=== PATIENT | male | born 1950 | race Caucasian/White ===

== ENCOUNTER → 2016-07-22 | Outpatient (CLI) | payer OTHER ==
[~2016-07-22] MED LIST: ALBUAER2 INH; AMLO-110 PO; ASPEC81 PO; CLX20 PO; CLX40 PO; HYDR25TA4 PO; LISI-725 PO; LSN40 PO; NRV/10 PO; PLMIN200 INH; PLMIN90; SIMV10TA2 PO; SNG10 PO; VNTHFA/IN INH
[2016-07-22 17:39] LABS: BASO % 0.3 %; BASO ABS # 0.03 K/uL (0-0.2); COMPLETE YES; EOS % 3.1 %; HEMATOCRIT 42.2 % (42-52); IG% 0.1 %; LYMPH % 41.3 %; LYMPH ABS # 3.76 K/uL (1.2-3.4); MEAN CELL VOLUME 91.9 fL (80-100); MEAN CORPUSCULAR HEMOGLOBIN 30.9 pg (25-34); MEAN CORPUSCULAR HGB CONC 33.6 g/dl (32-36); MEAN PLATELET VOLUME 9.9 fL (7.4-10.4); NEUT % 47.2 %; PLATELET COUNT 313 K/uL (130-400); RED BLOOD COUNT 4.59 M/uL (4.7-6.1); WHITE BLOOD COUNT 9.11 K/uL (4.8-10.8)
[2016-07-22 17:49] LABS: ALT/SGPT 35 U/L (12-78); BLOOD UREA NITROGEN 23 mg/dl (7-18); BUN/CREATININE RATIO 23.2 (10-20); CALCIUM 9.1 mg/dl (8.5-10.1); CARBON DIOXIDE 27 mmol/L (21-32); CHLORIDE 103 mmol/L (98-107); CHOLESTEROL 176 mg/dl (0-200); GLUCOSE 83 mg/dl (70-99); SODIUM 139 mmol/L (136-145); TRIGLYCERIDES 99 mg/dl (0-150); VERY LOW DENSITY LIPOPROT CALC 20 mg/dl
[2016-07-22 17:52] LABS: ALB/GLOB RATIO 1.1 (0.9-2); ALKALINE PHOSPHATASE 42 U/L (45-117); AST/SGOT 26 U/L (15-37); CHOLESTEROL/HDL RATIO 2.5; HDL CHOLESTEROL 70 mg/dl; LDL CHOLESTEROL CALCULATED 86 mg/dl
== END | disposition home or self-care (01) ==
LOC: C.LABBFT 12:23
PROVIDERS: ATTEND Internal Medicine
DX: I10 Essential (primary) hypertension (principal); E78.00 Pure hypercholesterolemia, unspecified

== ENCOUNTER 2017-01-31 11:14 | Emergency (ER) | payer OTHER ==
[~2017-01-31] VITALS: Ht 177.8 cm; Wt 79.3 kg
[~2017-01-31 11:14] MED LIST changes: -CLX40 PO; -HYDR25TA4 PO; -LSN40 PO; -NRV/10 PO; -PLMIN90; -VNTHFA/IN INH
[2017-01-31 11:19] VITALS: Ht 177.8 cm; Wt 79.3 kg
[2017-01-31 11:45] VITALS: O2SAT 98
[2017-01-31 12:11] LABS: MEAN CELL VOLUME 91.9 fL (80-100); MEAN CORPUSCULAR HEMOGLOBIN 31.8 pg (25-34); MEAN CORPUSCULAR HGB CONC 34.6 g/dl (32-36); MEAN PLATELET VOLUME 9.3 fL (7.4-10.4); PLATELET COUNT 328 K/uL (130-400); RED BLOOD COUNT 4.46 M/uL (4.7-6.1); WHITE BLOOD COUNT 7.88 K/uL (4.8-10.8)
--- NOTE | 2017-01-31 12:22 | DIAGNOSTIC IMAGING REPORT ---
SINGLE VIEW CHEST CLINICAL HISTORY: Hypertension. Palpitations. FINDINGS: An AP, portable, upright chest radiograph is compared to study dated 02/10/2016 and correlated with chest CT dated 06/23/2015. The examination is degraded by portable technique and patient rotation. The cardiomediastinal silhouette is unremarkable. Emphysema and chronic interstitial thickening is similar to previous. Foci of scarring are seen at both lung bases. There is a small left pleural effusion with left basilar opacities. No pneumothorax is seen. The skeletal structures are osteopenic. The bony thorax is grossly intact. IMPRESSION: 1. Emphysema and chronic parenchymal changes as above. 2. There is a small left pleural effusion with left basilar airspace opacities. This likely represents atelectasis. Correlate clinically for evidence of a superimposed infectious/inflammatory pneumonitis. Electronically signed by: Huang Montoya M.D. 01/31/2017 12:21 PM Dictated Date/Time: 01/31/2017 12:19 PM
[2017-01-31] MEDS ORDERED: NRV/10 PO (12:23)
[2017-01-31] MEDS ORDERED: PLMIN90 (12:23)
[2017-01-31] MEDS ORDERED: CLX40 PO (12:23)
[2017-01-31] MEDS ORDERED: LSN40 PO (12:23)
[2017-01-31] MEDS ORDERED: HYDR25TA4 PO (12:23)
[2017-01-31] MEDS ORDERED: SNG10 PO (12:23)
[2017-01-31] MEDS ORDERED: VNTHFA/IN INH (12:23)
[2017-01-31 12:26] LABS: PARTIAL THROMBOPLASTIN RATIO 1.1; PROTHROMBIN TIME (PATIENT) 10.2 SECONDS (9.0-12.0)
[2017-01-31 12:29] LABS: BUN/CREATININE RATIO 22.5 (10-20); CALCIUM 9.2 mg/dl (8.5-10.1); CREATININE 1.1 mg/dl (0.60-1.40); POTASSIUM 4.2 mmol/L (3.5-5.1)
[2017-01-31 12:33] LABS: CKMB/CK RATIO 1.4 (0-3.0)
[2017-01-31] MEDS ORDERED: SODIUM CHLORIDE 0.9% 1000ML 1,000 ML IV STA (13:32)
--- NOTE | 2017-01-31 13:40 | EMERGENCY ROOM VISIT NOTE ---
History Report prepared by Kvng: Benjy Summers Under the Supervision of: Dr. Manolo Jurado M.D. First contact with patient: 13:10 Chief Complaint: HYPERTENSION Stated Complaint: HIGH BLOOD PRESSURE;HEART PALP History of Present Illness The patient is a 66 year old male who presents to the Emergency Room with complaints of intermittent heart palpitations that started three days ago. The patient states that he noticed the irregular heartbeat three days ago, but noticed it became more constant today. He also reports that he has also been experiencing hypertension today with a read of 180/92, which prompted him to visit the ED. He admits that he took his blood pressure medication today for his symptoms. The patient admits to a history of PVCs, but he admits that he only experiences this intermittently. He reports that when he does have an episode, it usually goes away shortly after starting. The patient states that he believes his heartbeat is due to his increased anxiety from planning a trip to [place] next week. The patient is accompanied by his who states that he has been working outside in the sun for long hours. The patient states that he has been working on his new property and has been picking up rocks. He admits that he had pneumonia as a baby, which damaged his lower lung love. 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 He reports that he has a history of COPD, which he uses and inhaler for. The patient states that he typically experiences a cough due to his COPD, but denies any change in cough. He reports that he has been eating and drinking normally. He admits that he has a history of a stroke that occurred last year. The patient states that he was experiencing symptoms such as dysphasia and inability to write. He states that his stroke lasted for 4 hours. The patient admits that he is currently taking Aspirin daily. He denies fevers, chills, congestion, shortness of breath, nausea, vomiting, chest tightness, and a history of smoking. Source of History: patient Onset: three days ago Position: other (global) Quality: other (palpitations) Timing: intermittent Associated Symptoms: No fevers, No chills, No chest pain, No SOB, No nausea , No vomiting Review of Systems See HPI for pertinent positives and negatives. A total of ten systems were reviewed and were otherwise negative. Past Medical & Surgical Medical Problems: (1) Bronchiectasis (2) Hypertension (3) TIA (transient ischemic attack) Family History Patient reports no known family medical history. Social History Smoking Status: Never Smoker Drug Use: none Marital Status: Housing Status: lives with significant other Occupation Status: retired Current/Historical Medications Scheduled Amlodipine Besylate (Amlodipine Besylate), 10 MG PO DAILY Aspirin (Aspirin EC Low Dose), 81 MG PO DAILY Citalopram (Citalopram Hydrobromide), 40 MG PO DAILY Hydrochlorothiazide (Hctz), 12.5 MG PO DAILY Lisinopril (Lisinopril), 40 MG PO DAILY Montelukast Sod (Montelukast Sodium), 10 MG PO DAILY Simvastatin (Zocor), 10 MG PO QPM Scheduled PRN Albuterol Hfa (Ventolin Hfa), 2-4 PUFFS INH Q6H PRN for Shortness of Breath Miscellaneous Medications Budesonide (Pulmicort Flexhaler) Allergies Coded Allergies: Tomato (Unverified Allergy, Unknown, hives, 01/31/17) Levofloxacin (Unverified Adverse Reaction, Intermediate, "HIGH ANXIETY, CAN'T SLEEP" -PT, 01/31/17) Physical Exam Vital Signs Date Time Temp Pulse Resp B/P (MAP) Pulse Ox O2 Delivery O2 Flow Rate FiO2 01/31/17 16:44 37.1 71 14 161/75 97 01/31/17 16:39 71 14 161/75 97 Room Air 01/31/17 16:05 73 01/31/17 16:01 173/68 01/31/17 15:40 77 14 01/31/17 15:35 72 9 97 01/31/17 15:30 160/69 01/31/17 15:05 75 10 01/31/17 15:00 158/68 01/31/17 14:35 74 15 98 01/31/17 14:05 78 16 01/31/17 13:35 74 15 01/31/17 13:31 154/90 01/31/17 13:05 72 13 01/31/17 13:00 74 11 165/78 01/31/17 12:32 166/76 01/31/17 12:30 72 15 01/31/17 12:08 70 18 153/75 98 Room Air 01/31/17 11:48 70 01/31/17 11:45 71 15 147/86 95 Room Air 01/31/17 11:45 98 Room Air 01/31/17 11:19 37.1 83 16 162/85 98 Room Air Physical Exam GENERAL: Awake, alert, well-appearing, in no distress HENT: Normocephalic, atraumatic. Dry mucous membranes. Oropharynx otherwise unremarkable. EYES: Normal conjunctiva. Sclera non-icteric. NECK: Supple. No nuchal rigidity. FROM. No JVD. RESPIRATORY: Clear to auscultation. CARDIAC: Regular rate, normal rhythm. Extremities warm and well perfused. Pulses equal. ABDOMEN: Soft, non-distended. No tenderness to palpation. No rebound or guarding. No masses. RECTAL: Deferred. MUSCULOSKELETAL: Chest examination reveals no tenderness. The back is symmetrical on inspection without obvious abnormality. There is no CVA tenderness to palpation. No joint edema. LOWER EXTREMITIES: Calves are equal size bilaterally and non-tender. No edema. No discoloration. NEURO: Normal sensorium. No sensory or motor deficits noted. SKIN: No rash or jaundice noted. Medical Decision & Procedures ER Provider Diagnostic Interpretation: X-ray: Per my interpretation, radiologist review. SINGLE VIEW CHEST CLINICAL HISTORY: Hypertension. Palpitations. FINDINGS: An AP, portable, upright chest radiograph is compared to study dated 02/10/2016 and correlated with chest CT dated 06/23/2015. The examination is degraded by portable technique and patient rotation. The cardiomediastinal silhouette is unremarkable. Emphysema and chronic interstitial thickening is similar to previous. Foci of scarring are seen at both lung bases. There is a small left pleural effusion with left basilar opacities. No pneumothorax is seen. The skeletal structures are osteopenic. The bony thorax is grossly intact. IMPRESSION: 1. Emphysema and chronic parenchymal changes as above. 2. There is a small left pleural effusion with left basilar airspace opacities. This likely represents atelectasis. Correlate clinically for evidence of a superimposed infectious/inflammatory pneumonitis. Electronically signed by: Huang Montoya M.D. 01/31/2017 12:21 PM Dictated Date/Time: 01/31/2017 12:19 PM Laboratory Results 01/31/17 11:49 01/31/17 11:49 Test 01/31/17 11:49 01/31/17 11:54 Red Blood Count 4.46 M/uL (4.7-6.1) Mean Corpuscular Volume 91.9 fL (80-100) Mean Corpuscular Hemoglobin 31.8 pg (25-34) Mean Corpuscular Hemoglobin Concent 34.6 g/dl (32-36) RDW Standard Deviation 47.3 fL (36.4-46.3) RDW Coefficient of Variation 13.9 % (11.5-14.5) Mean Platelet Volume 9.3 fL (7.4-10.4) Prothrombin Time 10.2 SECONDS (9.0-12.0) Prothromb Time International Ratio 1.0 (0.9-1.1) Activated Partial Thromboplast Time 28.2 SECONDS (21.0-31.0) Partial Thromboplastin Ratio 1.1 Anion Gap 6.0 mmol/L (3-11) Est Creatinine Clear Calc Drug Dose 66.4 ml/min Estimated GFR () 79.5 Estimated GFR (Non- 68.6 BUN/Creatinine Ratio 22.5 (10-20) Calcium Level 9.2 mg/dl (8.5-10.1) Magnesium Level 2.2 mg/dl (1.8-2.4) Total Bilirubin 0.5 mg/dl (0.2-1) Aspartate Amino Transf (AST/SGOT) 33 U/L (15-37) Alanine Aminotransferase (ALT/SGPT) 41 U/L (12-78) Alkaline Phosphatase 43 U/L (45-117) Total Creatine Kinase 319 U/L (39-308) Creatine Kinase MB 4.6 ng/ml (0.5-3.6) Creatine Kinase MB Ratio 1.4 (0-3.0) Total Protein 7.9 gm/dl (6.4-8.2) Albumin 4.0 gm/dl (3.4-5.0) Globulin 3.9 gm/dl (2.5-4.0) Albumin/Globulin Ratio 1.0 (0.9-2) Thyroid Stimulating Hormone (TSH) 1.340 uIu/ml (0.300-4.500) Bedside Troponin I < 0.030 ng/ml (0-0.045) Laboratory results reviewed by me Medications Administered Medications (Trade) Dose Ordered Sig/Shu Route Start Time Stop Time Status Last Admin Dose Admin Sodium Chloride 1,000 ml @ 999 mls/hr Q1H1M STAT IV 01/31/17 13:32 01/31/17 14:32 DC 01/31/17 13:45 999 MLS/HR ECG Indication: other (palpitations) Rate (beats per minute): 72 Rhythm: sinus with SA Findings: no acute ischemic change, no ectopy, other (Normal interval) Comparison ECG Date: 02/10/16 Change: no significant change ED Course 1323: The patient was evaluated in room B04. A complete history and physical exam was performed. 1332: Sodium Chloride 1000 ml @ 999 mls/hr IV. 1611: I reevaluated the patient and he feels better. I discussed the patient's results and treatment plan. I told him to follow up with his doctor. He understands and agrees to the plan. The patient is ready for discharge. Medical Decision I reviewed the patient's past medical history, medications, and the nursing notes as described above. Triage Nursing notes reviewed. The patient's presentation and history were concerning for arrhythmia, ACS, pneumonia, bronchitis, dehydration, and electrolyte abnormalities. The patient is a 66-year-old gentleman who presents to department complaining of intermittent palpitations as well as elevated blood pressure per history of present illness. On arrival patient appears mildly anxious but otherwise well- appearing and in no acute distress. Patient is afebrile with heart rate NSR with occasional PVCs on the monitor and otherwise blood pressure systolic in the 170s. On exam the patient appears clinically dry with dry mucous membranes and otherwise exam is unremarkable. EKG unchanged. Troponin negative and the setting of several days of symptoms. Chest x-ray also unremarkable in the setting of the patient's known remote lobectomies. Labs also unremarkable with electrolytes. Patient feeling improved after IV fluids. 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 Patient agreeable and d/c'd per discharge instructions. Medication Reconcilliation Current Medication List: was personally reviewed by me Blood Pressure Screening Patient's blood pressure: Elevated blood pressure Blood pressure disposition: Referred to PCP Impression Primary Impression: Heart palpitations Scribe Attestation The scribe's documentation has been prepared under my direction and personally reviewed by me in its entirety. I confirm that the note above accurately reflects all work, treatment, procedures, and medical decision making performed by me. Departure Information Dispostion Home / Self-Care Referrals Harjinder Jackson M.D. (PCP) Ralph Rodriguez M.D. Forms HOME CARE DOCUMENTATION FORM, IMPORTANT VISIT INFORMATION, WORK / SCHOOL INSTRUCTIONS Patient Instructions ED Palpitations, My [facility], Premature Ventricular Contract About Additional Instructions Please follow up with your primary care physician and cardiology in the next 1- 3 days for re-evaluation and possible medication adjustment and holter monitor. Your exam, ekg, chest xray, and lab results did not show signs of an emergent condition. Return to the emergency department for worsening symptoms as described in the accompanying instructions.
[2017-01-31 15:16] LABS: MAGNESIUM 2.2 mg/dl (1.8-2.4); THYROID STIMULATING HORMONE 1.34 uIu/ml (0.300-4.500)
[2017-01-31 16:44] VITALS: BP 161/75; PULSE 71; TEMP 37.1; O2SAT 97
== END 2017-01-31 16:45 | disposition home or self-care (01) ==
LOC: C.EDB 11:16
DX: R00.2 Palpitations (principal); I10 Essential (primary) hypertension; Z86.73 Personal history of transient ischemic attack (TIA), and cerebral infarction without residual deficits; Z87.01 Personal history of pneumonia (recurrent); J44.9 Chronic obstructive pulmonary disease, unspecified; Z79.82 Long term (current) use of aspirin

== ENCOUNTER → 2017-03-10 | Outpatient (CLI) | payer OTHER ==
[~2017-03-10] MED LIST changes: -ALBUAER2 INH; -AMLO-110 PO; -CLX20 PO; +CLX40 PO; +HYDR25TA4 PO; -LISI-725 PO; +LSN40 PO; +NRV/10 PO; -PLMIN200 INH; +PLMIN90; +VNTHFA/IN INH
[2017-03-10 13:04] LABS: CHOLESTEROL/HDL RATIO 2.8
== END | disposition home or self-care (01) ==
LOC: C.LABBFT 10:09
PROVIDERS: ATTEND Internal Medicine
DX: E78.00 Pure hypercholesterolemia, unspecified (principal)

== ENCOUNTER → 2017-08-11 | Outpatient (CLI) | payer OTHER ==
[2017-08-11 12:19] LABS: BASO % 0.5 %; BASO ABS # 0.04 K/uL (0-0.2); EOS % 4.7 %; EOS ABS # 0.38 K/uL (0-0.5); HEMATOCRIT 41.7 % (42-52); HEMOGLOBIN 13.8 g/dL (14.0-18.0); IG# 0.02 K/uL (0.00-0.02); LYMPH % 41.5 %; LYMPH ABS # 3.37 K/uL (1.2-3.4); MEAN CELL VOLUME 93.1 fL (80-100); MEAN CORPUSCULAR HEMOGLOBIN 30.8 pg (25-34); MEAN CORPUSCULAR HGB CONC 33.1 g/dl (32-36); MEAN PLATELET VOLUME 9.4 fL (7.4-10.4); MONO % 12.4 %; MONO ABS # 1.01 K/uL (0.11-0.59); NEUT % 40.7 %; NEUT ABS # 3.31 K/uL (1.4-6.5); PLATELET COUNT 320 K/uL (130-400); RED CELL DISTRIBUTION WIDTH CV 15.2 % (11.5-14.5); WHITE BLOOD COUNT 8.13 K/uL (4.8-10.8)
[2017-08-11 12:48] LABS: ALT/SGPT 56 U/L (12-78); BLOOD UREA NITROGEN 24 mg/dl (7-18); CALCIUM 8.7 mg/dl (8.5-10.1); CARBON DIOXIDE 30 mmol/L (21-32); CHOLESTEROL 155 mg/dl (0-200); CREATININE 1.03 mg/dl (0.60-1.40); GLUCOSE 83 mg/dl (70-99); POTASSIUM 4.1 mmol/L (3.5-5.1); SODIUM 135 mmol/L (136-145)
[2017-08-11 12:53] LABS: ALKALINE PHOSPHATASE 47 U/L (45-117); AST/SGOT 33 U/L (15-37); LDL CHOLESTEROL CALCULATED 72 mg/dl; TOTAL PROTEIN 6.9 gm/dl (6.4-8.2)
== END | disposition home or self-care (01) ==
LOC: C.LABBFT 08:29
PROVIDERS: ATTEND Internal Medicine
DX: J44.9 Chronic obstructive pulmonary disease, unspecified (principal); E78.00 Pure hypercholesterolemia, unspecified; Z12.5 Encounter for screening for malignant neoplasm of prostate; T14.8XXA Other injury of unspecified body region, initial encounter; W57.XXXA Bitten or stung by nonvenomous insect and other nonvenomous arthropods, initial encounter

== ENCOUNTER 2025-01-28 11:50 | Observation (INO) ==
--- NOTE | 2025-01-28 12:09 | Emergency Department Note ---
Impression & Plan Right arm weakness, Stroke-like symptoms, Anemia, History of TIA (transient ischemic attack) ED Provider Note NAME: DOTTY MILLER AGE: 74 SEX: M : 1950 ARRIVES VIA: Walk-In INFORMANT: [Patient] ED PROVIDER(S): [Huang Renae MD] CHIEF COMPLAINT: Strokelike symptoms, nausea HISTORY OF PRESENT ILLNESS: From today's outpatient visit: On 01/16, he contacted ENT and was given Augmentin x 28 days. This has not helped. Also has a pseudomonas infection in his lung - coughing more, wheezing, thick green sputum. His meat products demonstrator prescribed ciprofloxacin. The patient is a 74-year-old male who is currently on Augmentin and Cipro. The Augmentin is for his sinuses, the Cipro is for a Pseudomonas infection in his lungs. Patient states that this morning, at around 730, almost 5 hours ago, he was trying to sign a receipt and his right arm would not work properly. The arm felt weak and almost limp and would not function on command. He states that the episode lasted 15 minutes and then resolved. There has been no recurrence. There was no headache, no facial numbness or weakness. No right leg weakness. He had no chest pain and no shortness of breath. The patient went to his doctor's office today, he was referred to the ER. The patient is on baby aspirin, he had a TIA 8 years ago. PMHx/PSHx/Social Hx: See Below PHYSICAL EXAM: GENERAL: Patient is in no acute distress. HEENT: No acute trauma, normocephalic atraumatic, mucous membranes moist, no nasal congestion. NECK: No stridor, no adenopathy, no meningismus, trachea is midline. LUNGS: Clear to auscultation bilaterally, no wheeze, no rhonchi, breath sounds equal. Breath sounds diminished bilaterally. HEART: Without murmurs gallops or rubs, regular rate and rhythm. ABDOMEN: Soft, nontender, no peritonitis. EXTREMITIES: No cyanosis, full range of motion of all the joints without pain or difficulty. NEUROLOGIC: Oriented x 3. No extremity drift or cerebellar dysfunction. No facial droop or speech slur. Excellent historian. SKIN: No jaundice, no diaphoresis. DIFFERENTIAL DIAGNOSIS: TIA, CVA, electrolyte imbalance, anemia, among others. EMERGENCY DEPARTMENT PROCEDURES: MEDICAL DECISION MAKING: There is no leukocytosis. The patient is anemic however, this is a chronic issue. There is a normal platelet count. No bandemia. No coagulopathy. No renal failure or significant electrolyte abnormality. No concerning liver enzyme elevation. ECG shows a sinus bradycardia, no ischemia or dysrhythmia. Cardiac enzyme testing x 1 is not consistent with acute cardiac injury. Urinalysis does not show findings of infection. Brain CT shows no acute bleed or mass effect. CTA of the head and neck were performed, there was no significant stenosis or clot. On exam, the patient was without neurologic complaints. Patient was given IV saline for hydration. Patient presents with right arm weakness consistent with potential stroke. Given the resolution of symptoms, TIA seems very likely. For now, the patient is doing well but, he will require further stroke workup within the hospital. I did speak with the patient and case management, the on-call hospitalist was consulted. Prior/Outside records/notes reviewed: Today's outpatient family doctor note describing his presentation, their concerns and the ED referral. ECG per my interpretation: Indication was possible stroke. The ECG shows a sinus bradycardia with a rate of 58. There is no ST elevation, no PVCs. The QTc is 437. Continuous Cardiac Monitoring per my interpretation: An order was placed for continuous cardiac monitoring. The monitor shows a rate of 60 with normal sinus rhythm. Imaging/x-ray results per my interpretation: Chronic Medical/Social conditions affecting care: Advanced age, history of previous TIA. Care/Management discussed with: Case management, the on-call hospitalist. Level of care consideration(s): After review of the information above and other included data: --I believe the patient requires escalation of care to admission DISPOSITION: Admission Past Med/Surg History Problem List History of TIA (transient ischemic attack) (Acute) Anemia (Acute) Stroke-like symptoms (Acute) Right arm weakness (Acute) Right arm weakness Stroke-like symptoms Pseudomonas aeruginosa infection Tick bite of back Exacerbation of bronchiectasis due to infection Lightheadedness (Chronic) Upper back pain Generalized anxiety disorder (Chronic) Chronic sinusitis, unspecified Joint ache Cough BPH with urinary obstruction Renal cyst Hypertension (Chronic) Chronic anemia ETD (eustachian tube dysfunction) Abnormal CT scan of lung Mixed conductive and sensorineural hearing loss Chronic obstructive pulmonary disease (Chronic) Bronchiectasis (Acute) Medical History Fatigue Snoring Hypersomnia Asymptomatic bacteriuria Urinary retention Encounter for pre-operative examination Anxiety Rheumatoid arthritis Snoring occasionally- sleep study 12/2023- no SHANIA Rheumatoid arthritis stable per patient no kiln labourer ; only PCP Hearing loss hearing aids bilat. 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 Follows with pulm only takes antibiotics PRN; does pulmonary toilet Hypercholesteremia History of COVID-19 03/28/23 (tested at PCP)- URI, sinus congestion/bad cold, treated with Paxlovid (had side effects from drug and stopped taking) > no residual symptoms Hypertension BPH (benign prostatic hyperplasia) - hx TURP 05/16/23, [facility]; still has some LUTS - follows with urology Dysfunction of both eustachian tubes PVCs (premature ventricular contractions) follows with PCP Peyronie's disease COPD (chronic obstructive pulmonary disease) - breathing at baseline TIA (transient ischemic attack) 2017, felt r/t elevated BP Surgical History History of endoscopic sinus surgery 07/16/24-Dr. Chambers History of nasal septoplasty w/bilateral inferior turbinate reduction-07/16/24-Dr. Chambers History of transurethral resection of prostate 05/16/23 History of dental surgery dental implant History of tooth extraction History of bronchoscopy History of colonoscopy History of placement of ear tubes in office on 04/03/17-Dr. Rodriguez H/O pneumonectomy History of lung segmental resection (lower left lung and middle right lung removed at age of 13)- felt r/t complications from PNA at baby S/P tonsillectomy and adenoidectomy Family History Sister High cholesterol Breast cancer Hypertension Father Coronary heart disease CHF (congestive heart failure) Atrial fibrillation Ventricular arrhythmia Crohn's disease Myocardial infarction Hearing loss of both ears Hypertension Stroke Brother High cholesterol Hypertension Family hx colonic polyps Atrial fibrillation Grandmother Stroke Grandfather Renal failure Grandmother Cardiac disorder Unknown Benign prostate hyperplasia Mother High cholesterol Other specified forms of hearing loss Hypertension Dementia Non-Hodgkin lymphoma Uncle Family hx colonic polyps Other No family history of adverse response to anesthesia No family history of bleeding disorder Denies family history of Ovarian cancer Diabetes Alzheimer disease Lung cancer Colorectal cancer Social History Smoking Status: Never smoker Second Hand Exposure: Yes (hx); Do You Dip or Chew Tobacco: No; Hx Alcohol Use: Yes Alcohol type: wine Alcohol Intake Frequency: 2-3 x/Week (wine ) Alcohol Intake Frequency Comment: 2-3 drinks per day Hx Substance Use: No Preferred Language: Arabic Communication Ability: Effective Visual Impairment: No Limitations Hearing Ability: Use of Hearing Aid Assistant Product Manager Required: No Beliefs That Will Affect Care: None marital status: Current Living Situation: Spouse current occupational status: retired 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 Seatbelt Use: always Sunscreen Use: Yes Assistive Devices: Hearing Aid - Bilateral Allergies Allergies Allergy/AdvReac Type Severity Reaction Status Date / Time hydroxychloroquine Allergy Severe arrhthymia Verified 01/28/25 10:48 levofloxacin Allergy Severe arrhythmia Verified 01/28/25 10:48 moxifloxacin [From Avelox] Allergy Severe arrhythmia Verified 01/28/25 10:48 naproxen [From Aleve] Allergy Severe arrhythmia Verified 01/28/25 10:48 Quinolones Allergy Severe arrhythmia Verified 01/28/25 10:48 tomato Allergy Intermediate hives Verified 01/28/25 10:48 tobramycin AdvReac Intermediate Wheezing Verified 01/28/25 10:48 Home Meds Home Medications Medication Instructions Recorded Confirmed aspirin 81 mg tablet,delayed 81 mg PO QPM 02/19/21 01/28/25 release (Adult Low Dose Aspirin) potassium gluconate 595 mg (99 mg) 595 mg PO DAILY PRN muscle aches 12/14/22 01/28/25 tablet tamsulosin 0.4 mg capsule (Flomax) 0.4 mg PO QPM 06/27/24 01/28/25 amlodipine 5 mg tablet 10 mg PO HS 01/28/25 01/28/25 Previous Rx's Medication Instructions Recorded losartan 50 mg tablet 50 mg PO BID 90 days #180 tabs 01/23/24 simvastatin 10 mg tablet 10 mg PO QPM #90 tabs 05/16/24 alprazolam 0.25 mg tablet (Xanax) 0.25 mg PO QPM PRN anxiety #90 tabs 07/31/24 fluticasone fur. 100 mcg-umeclid 1 inh inhalation QAM #3 Inhalers 08/27/24 62.5 mcg-vilant 25 mcg inhalat.powder (Trelegy Ellipta) levalbuterol tartrate 45 2 inh inhalation BID PRN shortness 08/27/24 mcg/actuation aerosol inhaler of breath or wheezing #15 grams (Xopenex HFA) doxycycline hyclate 100 mg capsule 200 mg (2 x 100 mg) PO ONCE PRN 09/17/24 Tick Bite #30 caps montelukast 10 mg tablet 10 mg PO QPM #90 tabs 11/11/24 hydrochlorothiazide 12.5 mg tablet 12.5 mg PO QAM Edema/BP reading 11/26/24 #90 tabs sodium chloride 7 % for 4 ml inhalation BID #240 mL 12/05/24 nebulization compressor, for nebulizer #1 ea 01/09/25 nebulizer accessories #1 ea 01/09/25 citalopram 10 mg tablet 10 mg PO QAM #90 tabs 01/13/25 citalopram 20 mg tablet 20 mg PO QAM #90 tabs 01/13/25 amoxicillin 875 mg-potassium 1 tab PO Q12H 28 days #56 tabs 01/16/25 clavulanate 125 mg tablet ciprofloxacin HCl 500 mg tablet 500 mg PO BID 10 days #20 tabs 01/27/25 Results & Data (ED) Vital Signs Vital Signs - 24 hr 01/28/25 11:52 01/28/25 12:28 01/28/25 12:30 Temperature 36.6 C Temperature Source Oral Pulse Rate 60 59 L Pulse Rate [Apical] 63 Pulse Strength [Apical] Respiratory Rate 16 18 Respiratory Effort / Characteristics Non-Labored Spontaneous Respiratory Depth Normal Respiratory Pattern Regular Blood Pressure 208/77 H Blood Pressure [Right Arm] 169/69 H Blood Pressure Mean 120 Blood Pressure Mean [Right Arm] 102 Blood Pressure Position Sitting Blood Pressure Position [Right Arm] Semi-fowlers Pulse Oximetry 98 98 Oxygen Delivery Method Room Air Room Air Sepsis Recent Fever Within 48 Hours No Sepsis New/Unexplained Change in Mental Status N/A Sepsis Action Taken by Nursing No Action Required 01/28/25 14:12 Temperature Temperature Source Pulse Rate Pulse Rate [Apical] 75 Pulse Strength [Apical] Normal Respiratory Rate 17 Respiratory Effort / Characteristics Non-Labored Spontaneous Respiratory Depth Normal Respiratory Pattern Regular Blood Pressure Blood Pressure [Right Arm] 175/84 H Blood Pressure Mean Blood Pressure Mean [Right Arm] 114 Blood Pressure Position Blood Pressure Position [Right Arm] Pulse Oximetry 98 Oxygen Delivery Method Room Air Sepsis Recent Fever Within 48 Hours Sepsis New/Unexplained Change in Mental Status Sepsis Action Taken by [facility] Medications Current Medication List: was personally reviewed by me Laboratory Data Attestation: I reviewed the patient's lab results. 01/28/25 12:30 01/28/25 12:30 Lab Results 01/28/25 01/28/25 Range/Units 12:30 13:07 WBC 8.61 (4.8-10.8) K/ul RBC 4.12 L (4.70-6.10) M/uL Hgb 12.7 L (14.0-18.0) g/dl Hct 37.0 L (42.0-52.0) % MCV 89.8 (80.0-100.0) fL MCH 30.8 (25.0-34.0) pg MCHC 34.3 (32.0-36.0) g/dL RDW Std Deviation 46.2 (36.4-46.3) fL RDW Coeff of Julianna 14.1 (11.5-14.5) % Plt Count 308 (130-400) K/uL MPV 9.1 L (9.4-12.4) fL Immature Gran % (Auto) 0.1 % Neut % (Auto) 68.0 % Lymph % (Auto) 23.9 % [place] % (Auto) 7.5 % Eos % (Auto) 0.2 % Baso % (Auto) 0.3 % Neut # (Auto) 5.84 (1.40-6.50) K/uL Lymph # (Auto) 2.06 (1.20-3.40) K/uL [place] # (Auto) 0.65 H (0.11-0.59) K/uL Eos # (Auto) 0.02 (0.00-0.50) K/uL Baso # (Auto) 0.03 (0.00-0.20) K/uL Immature Gran # (Auto) 0.01 (0.01-0.20) K/uL PT 10.7 (9.0-12.0) Seconds INR 1.0 (0.9-1.1) APTT 29 (21-31) Seconds PTT Ratio 1.1 Sodium 138 (136-145) mmol/L Potassium 4.6 (3.5-5.1) mmol/L Chloride 103 (98-107) mmol/L Carbon Dioxide 29 (21-32) mmol/L Anion Gap 6 (3-11) BUN 17 (6-23) mg/dl Creatinine 0.91 (0.6-1.4) mg/dl Est Cr Clr Drug Dosing 71.3 ml/min eGFR 87.35 BUN/Creatinine Ratio 18.7 (10-20) Glucose 100 H (70-99(Fasting)) mg/dl Calcium 9.5 (8.6-10.3) mg/dl Magnesium 1.9 (1.7-2.4) mg/dl Total Bilirubin 0.7 (0.2-1.0) mg/dl AST 21 (13-39) U/L ALT 14 (7-52) U/L Alkaline Phosphatase 43 (34-104) U/L Troponin I High Sens 6.8 (0-20) pg/ml Total Protein 7.3 (6.0-8.3) gm/dl Albumin 4.2 (3.4-5.0) gm/dl Globulin 3.1 (2.5-4.0) gm/dl Albumin/Globulin Ratio 1.4 (0.9-2) Urine Color Yellow Urine Appearance Clear (Clear) Urine pH 5.5 (4.5-7.5) Ur Specific Arnold <= 1.005 (1.000-1.030) Urine Protein Negative (Negative) Urine Glucose (UA) Negative (Negative) Urine Ketones Negative (Negative) Urine Blood Negative (Negative) Urine Nitrite Negative (Negative) Urine Bilirubin Negative (Negative) Urine Urobilinogen Negative (Negative) Ur Leukocyte Esterase Negative (Negative) Urine Comment Administered Medications Discontinued Medications Sodium Chloride (Nss) 500 mls @ 999 mls/hr IV .Q31M ONE Stop: 01/28/25 12:39 Last Infusion: 01/28/25 13:14 Dose: Infused Documented By: carmen Admin: 01/28/25 12:35 Dose: 999 mls/hr Documented By: ЮЛИЯ Ioversol (Optiray 320 125ml) 119 ml IV ONCE ONE Stop: 01/28/25 13:27 Last Admin: 01/28/25 13:27 Dose: 119 ml Documented By: Imaging Data Radiologist's Impression: Head CT 01/28/25 12:[address] OF THE BRAIN; CT ANGIOGRAM OF THE BRAIN CLINICAL HISTORY: Neurological deficit. Stroke like symptoms. COMPARISON STUDY: CT angiogram of the brain dated 08/14/2024 TECHNIQUE: Unenhanced axial CT scan of the brain is performed. Subsequently, following the IV administration of 119 cc of Optiray 320, CT angiogram of the brain was performed from the skull base to the vertex. Images are reviewed in the axial, sagittal, and coronal planes. 3-D MIPS images are created and assessed. IV contrast was administered without complication. A dose lowering technique was utilized adhering to the principles of ALARA. CT DOSE: 1201.43 mGy.cm FINDINGS: Brain parenchyma: There is age-related involutional change noting minimal microangiopathic disease. There is no hemorrhage, mass effect, or evidence of acute territorial ischemia by CT criteria. There is no evidence of enhancing mass lesion on the angiogram phase images. No extra-axial fluid collection is seen. Metzger-white matter differentiation is preserved. Ventricles, sulci, and cisterns: Prominent secondary to involutional change. CT angiogram of the brain: There is atherosclerotic calcification of the cavernous carotid and vertebral arteries. The ramona of Geller is developmentally complete. The internal carotid arteries at the skull base are patent, as are the anterior and middle cerebral arteries. The vertebrobasilar system and posterior cerebral arteries are patent. The vertebral arteries are codominant. There is no aneurysm, high-grade stenosis, or focal vessel cutoff identified throughout the intracranial circulation. Dural sinuses: Clear as visualized. Orbits: The bony orbits are intact. The orbital contents are normal as visualized. Sinuses and mastoids: There is evidence of previous paranasal sinus surgery. There is mild/moderate mucosal thickening and fluid within the maxillary antra. Moderate mucosal thickening is seen within the ethmoid sinuses. There is mild mucosal thickening within the frontal and sphenoid sinuses. Thickening and sclerosis of the sphenoid sinus napoles indicates chronicity. There is a left mastoid effusion. The right mastoid air cells are well pneumatized. Calvarium: Unremarkable. IMPRESSION: 1. There is no hemorrhage, mass effect, or evidence of acute territorial ischemia by CT criteria. 2. Unremarkable CT angiogram of the brain. ACT 112: Negative or not required by law. Electronically signed by: Huang Montoya M.D. 01/28/2025 1:53 PM Head CTA 01/28/25 12:[address] OF THE BRAIN; CT ANGIOGRAM OF THE BRAIN CLINICAL HISTORY: Neurological deficit. Stroke like symptoms. COMPARISON STUDY: CT angiogram of the brain dated 08/14/2024 TECHNIQUE: Unenhanced axial CT scan of the brain is performed. Subsequently, following the IV administration of 119 cc of Optiray 320, CT angiogram of the brain was performed from the skull base to the vertex. Images are reviewed in the axial, sagittal, and coronal planes. 3-D MIPS images are created and assessed. IV contrast was administered without complication. A dose lowering technique was utilized adhering to the principles of ALARA. CT DOSE: 1201.43 mGy.cm FINDINGS: Brain parenchyma: There is age-related involutional change noting minimal microangiopathic disease. There is no hemorrhage, mass effect, or evidence of acute territorial ischemia by CT criteria. There is no evidence of enhancing mass lesion on the angiogram phase images. No extra-axial fluid collection is seen. Metzger-white matter differentiation is preserved. Ventricles, sulci, and cisterns: Prominent secondary to involutional change. CT angiogram of the brain: There is atherosclerotic calcification of the cavernous carotid and vertebral arteries. The ramona of Geller is developmentally complete. The internal carotid arteries at the skull base are patent, as are the anterior and middle cerebral arteries. The vertebrobasilar system and posterior cerebral arteries are patent. The vertebral arteries are codominant. There is no aneurysm, high-grade stenosis, or focal vessel cutoff identified throughout the intracranial circulation. Dural sinuses: Clear as visualized. Orbits: The bony orbits are intact. The orbital contents are normal as visualized. Sinuses and mastoids: There is evidence of previous paranasal sinus surgery. There is mild/moderate mucosal thickening and fluid within the maxillary antra. Moderate mucosal thickening is seen within the ethmoid sinuses. There is mild mucosal thickening within the frontal and sphenoid sinuses. Thickening and sclerosis of the sphenoid sinus napoles indicates chronicity. There is a left mastoid effusion. The right mastoid air cells are well pneumatized. Calvarium: Unremarkable. IMPRESSION: 1. There is no hemorrhage, mass effect, or evidence of acute territorial ischemia by CT criteria. 2. Unremarkable CT angiogram of the brain. ACT 112: Negative or not required by law. Electronically signed by: Huang Montoya M.D. 01/28/2025 1:53 PM Neck CTA 01/28/25 12:09 CT ANGIOGRAPHY OF THE NECK WITH CONTRAST CLINICAL HISTORY: neuro deficit, acute stroke suspected COMPARISON STUDY: CTA of the neck August 14, 2024. Technique: CT angiography of the carotid and vertebral arteries was obtained using Optiray and 3D reconstruction on an independent workstation. NASCET criteria was utilized. Automated exposure control was utilized for the study. A dose lowering technique was utilized adhering to the principles of ALARA. Findings: Emphysema is incidentally noted within visualized portions of the lung apices. A few ill-defined groundglass opacities within the right upper lobe measure up to 8 mm. There is no cervical lymphadenopathy. No cervical spine fractures are identified. The bilateral common carotid, cervical internal carotid and vertebral arteries are patent. There is no stenosis, dissection or aneurysm within the neck. There is mild plaque within the proximal bilateral internal carotid arteries without stenosis. IMPRESSION: 1. No stenosis or dissection within the bilateral common carotid, cervical internal carotid or vertebral arteries. 2. A few ill-defined ground glass opacities within the right upper lobe suggestive of a mild infectious process. A chest CT in 3 months to ensure resolution is recommended. ACT 112: Negative or not required by law. Electronically signed by: Lawson Chambers M.D. 01/28/2025 1:54 PM Discharge Plan Visit Data Chief Complaint: Nausea Stated Complaint: NAUSEA, LIMP R ARM, SINUSITUS ED Provider: Huang Renae Discharge Problem: Right arm weakness, Stroke-like symptoms, Anemia, History of TIA (transient ischemic attack) Patient Disposition: Admitted As Inpatient Condition: Fair Discharge Instructions Interventions: ED Discharge Assessment Last Done: 01/28/25 15:30 Discharge Problem: Anemia Qualifiers: Anemia type: unspecified type Qualified Code(s): D64.9 - Anemia, unspecified
[2025-01-28] MEDS: SODIUM CHLORIDE 0.9% 500 ML IV ONE (12:35)
[2025-01-28 12:44] LABS: Hematocrit (blood only) 37.0 % (42.0-52.0); Hemoglobin 12.7 g/dl (14.0-18.0); Immature Granulocytes # (auto) 0.01 K/uL (0.01-0.20); Immature Granulocytes % (auto) 0.1 %; Mean Corpuscular Hemoglobin 30.8 pg (25.0-34.0); Mean Corpuscular Volume 89.8 fL (80.0-100.0); Platelet Count 308 K/uL (130-400); RDW Standard Deviation 46.2 fL (36.4-46.3); Red Blood Count 4.12 M/uL (4.70-6.10); White Blood Count 8.61 K/ul (4.8-10.8)
[2025-01-28 13:04] LABS: Alanine Aminotransferase 14.0 U/L (7-52); Albumin Globulin Ratio 1.4 (0.9-2); Alkaline Phosphatase 43.0 U/L (34-104); Anion Gap 6.0 (3-11); Bilirubin,Total 0.7 mg/dl (0.2-1.0); Blood Urea Nitrogen 17.0 mg/dl (6-23); Calcium 9.5 mg/dl (8.6-10.3); Carbon Dioxide 29.0 mmol/L (21-32); Chloride 103.0 mmol/L (98-107); Creatinine Clr Calc Pharmacy 71.3 ml/min; Globulin 3.1 gm/dl (2.5-4.0); Glucose 100.0 mg/dl (70-99(Fasting)); Magnesium 1.9 mg/dl (1.7-2.4); Potassium 4.6 mmol/L (3.5-5.1); Sodium 138.0 mmol/L (136-145); Total Protein 7.3 gm/dl (6.0-8.3)
[2025-01-28 13:19] LABS: INR 1.0 (0.9-1.1); Partial Thromboplastin Time 29 Seconds (21-31); Prothrombin Time 10.7 Seconds (9.0-12.0)
[2025-01-28 13:21] LABS: Appearance Urine Clear (Clear); Glucose Urine UA Negative (Negative)
[2025-01-28] MEDS: OPTIRAY 320 125ml IV ONE (13:27)
--- NOTE | 2025-01-28 13:54 | CT Scan Report ---
UNENHANCED CT OF THE BRAIN; CT ANGIOGRAM OF THE BRAIN CLINICAL HISTORY: Neurological deficit. Stroke like symptoms. COMPARISON STUDY: CT angiogram of the brain dated 08/14/2024 TECHNIQUE: Unenhanced axial CT scan of the brain is performed. Subsequently, following the IV adminis tration of 119 cc of Optiray 320, CT angiogram of the brain was performed from the skull base to the vertex. Images are reviewed in the axial, sagittal, and coronal planes. 3-D MIPS images are created a nd assessed. IV contrast was administered without complication. A dose lowering technique was utiliz ed adhering to the principles of ALARA. CT DOSE: 1201.43 mGy.cm FINDINGS: Brain parenchyma: There is age-related involutional change noting minimal microangiopathic disease. T here is no hemorrhage, mass effect, or evidence of acute territorial ischemia by CT criteria. There i s no evidence of enhancing mass lesion on the angiogram phase images. No extra-axial fluid collection is seen. Metzger-white matter differentiation is preserved. Ventricles, sulci, and cisterns: Prominent secondary to involutional change. CT angiogram of the brain: There is atherosclerotic calcification of the cavernous carotid and verteb ral arteries. The cheesh-na of Geller is developmentally complete. The internal carotid arteries at the skull base are patent, as are the anterior and middle cerebral arteries. The vertebrobasilar system a nd posterior cerebral arteries are patent. The vertebral arteries are codominant. There is no aneurys m, high-grade stenosis, or focal vessel cutoff identified throughout the intracranial circulation. Dural sinuses: Clear as visualized. Orbits: The bony orbits are intact. The orbital contents are normal as visualized. Sinuses and mastoids: There is evidence of previous paranasal sinus surgery. There is mild/moderate m ucosal thickening and fluid within the maxillary antra. Moderate mucosal thickening is seen within th e ethmoid sinuses. There is mild mucosal thickening within the frontal and sphenoid sinuses. Thickeni ng and sclerosis of the sphenoid sinus napoles indicates chronicity. There is a left mastoid effusion. The right mastoid air cells are well pneumatized. Calvarium: Unremarkable. IMPRESSION: 1. There is no hemorrhage, mass effect, or evidence of acute territorial ischemia by CT criteria. 2. Unremarkable CT angiogram of the brain. ACT 112: Negative or not required by law. Electronically signed by: Huang Montoya M.D. 01/28/2025 1:53 PM
--- NOTE | 2025-01-28 13:55 | CT Scan Report ---
CT ANGIOGRAPHY OF THE NECK WITH CONTRAST CLINICAL HISTORY: neuro deficit, acute stroke suspected COMPARISON STUDY: CTA of the neck August 14, 2024. Technique: CT angiography of the carotid and vertebral arteries was obtained using Optiray and 3D rec onstruction on an independent workstation. NASCET criteria was utilized. Automated exposure control was utilized for the study. A dose lowering technique was utilized adhering to the principles of ALA RA. Findings: Emphysema is incidentally noted within visualized portions of the lung apices. A few ill-de fined groundglass opacities within the right upper lobe measure up to 8 mm. There is no cervical lymp hadenopathy. No cervical spine fractures are identified. The bilateral common carotid, cervical inter nal carotid and vertebral arteries are patent. There is no stenosis, dissection or aneurysm within th e neck. There is mild plaque within the proximal bilateral internal carotid arteries without stenosis . IMPRESSION: 1. No stenosis or dissection within the bilateral common carotid, cervical internal carotid or verteb ral arteries. 2. A few ill-defined ground glass opacities within the right upper lobe suggestive of a mild infectio us process. A chest CT in 3 months to ensure resolution is recommended. ACT 112: Negative or not required by law. Electronically signed by: Lawson Chambers M.D. 01/28/2025 1:54 PM
--- NOTE | 2025-01-28 14:57 | History & Physical Report ---
Date of Service January 28, 2025 Assessment & Plan (1) Stroke-like symptoms: (2) Right arm weakness: (3) Pseudomonas aeruginosa infection: (4) Generalized anxiety disorder: Plan The patient is a 74-year-old male with a past medical history including Pseudomonas lung infection, chronic bronchiectasis, generalized anxiety disorder BPH with urinary obstruction, hypertension, eustachian tube dysfunction, mixed conductive and sensorineural hearing loss, COPD, and history of tick bites. The patient reports that he was trying to write a check this morning with his right arm, and for 15 minutes he was not able to do it. Since that time the symptoms have resolved completely. He has no other symptoms, including involvement of right leg, speech, swallowing headaches dizziness etc. He had a similar episode about 8 years ago involving the right arm, but at that time also he looked in the mirror and saw that he had a facial droop as well. This time he did not have a facial droop. He continues to take his aspirin on a regular basis as directed, and all his other medications he has been taking regularly as well. He is presently on ciprofloxacin they began day for a potential lung infection, and has been on Augmentin day out of for a sinus infection. He does not feel that his sinus infection has responded to the Augmentin. He reports that he has a sense of brain fog, which had happened once before with a sinus infection that responded to Augmentin, but the brain fog is not responding this time. Strokelike symptoms/right arm weakness- Duration of about 15 minutes this morning while trying to write a check and has since resolved completely No other associated neurologic symptoms CT scan head without contrast negative CTA head and neck negative MRI brain is ordered and pending Echocardiogram performed in August was negative will not be repeated Stroke without thrombolytic order set Pseudomonas lung infection- Had a prescription for Cipro 500 mg p.o. twice daily called in by pulmonology yesterday. He completed day so far We will consider adjusting antibiotics to Levaquin, to which Pseudomonas was sensitive, and would cover sinus infection better than Augmentin at this point Sinus infection- A prescription for Augmentin called in by his doctor, and is presently on day He reports that his sinus infection has not improved, and that the brain fog that accompanies it has not improved like it had before with Augmentin. Hypertension- Continue amlodipine, aspirin, losartan and HCTZ Hyperlipidemia- Increase simvastatin from 10 to 40 mg daily BPH- Continue tamsulosin Generalized anxiety disorder- Continue citalopram, and alprazolam as needed History of Present Illness Chief Complaint: The patient reports that he was trying to write a check this morning with his right arm, and for 15 minutes he was not able to do it. Since that time the symptoms have resolved completely. He has no other symptoms, including involvement of right leg, speech, swallowing headaches dizziness etc. He had a similar episode about 8 years ago involving the right arm, but at that time also he looked in the mirror and saw that he had a facial droop as well. This time he did not have a facial droop. He continues to take his aspirin on a regular basis as directed, and all his other medications he has been taking regularly as well. He is presently on ciprofloxacin they began day 1 of 10 for a potential lung infection, and has been on Augmentin day 13 out of 28 for a sinus infection. Primary Care Provider: Melvin Martin DO The patient is a 74-year-old male with a past medical history including Pseudomonas lung infection, chronic bronchiectasis, generalized anxiety disorder BPH with urinary obstruction, hypertension, eustachian tube dysfunction, mixed conductive and sensorineural hearing loss, COPD, and history of tick bites. The patient reports that he was trying to write a check this morning with his right arm, and for 15 minutes he was not able to do it. Since that time the symptoms have resolved completely. He has no other symptoms, including involvement of right leg, speech, swallowing headaches dizziness etc. He had a similar episode about 8 years ago involving the right arm, but at that time also he looked in the mirror and saw that he had a facial droop as well. This time he did not have a facial droop. He continues to take his aspirin on a regular basis as directed, and all his other medications he has been taking regularly as well. He is presently on ciprofloxacin they began day 1 of 10 for a potential lung infection, and has been on Augmentin day 13 out of 28 for a sinus infection. He does not feel that his sinus infection has responded to the Augmentin. Allergies Allergy/AdvReac Type Severity Reaction Status Date / Time hydroxychloroquine Allergy Severe arrhthymia Verified 01/28/25 10:48 levofloxacin Allergy Severe arrhythmia Verified 01/28/25 10:48 moxifloxacin [From Avelox] Allergy Severe arrhythmia Verified 01/28/25 10:48 naproxen [From Aleve] Allergy Severe arrhythmia Verified 01/28/25 10:48 Quinolones Allergy Severe arrhythmia Verified 01/28/25 10:48 tomato Allergy Intermediate hives Verified 01/28/25 10:48 tobramycin AdvReac Intermediate Wheezing Verified 01/28/25 10:48 Home Medications Medication Instructions Recorded Confirmed Type aspirin 81 mg tablet,delayed 81 mg PO QPM 02/19/21 01/28/25 History release (Adult Low Dose Aspirin) potassium gluconate 595 mg (99 mg) 595 mg PO DAILY PRN muscle aches 12/14/22 01/28/25 History tablet losartan 50 mg tablet 50 mg PO BID 90 days #180 tabs 01/23/24 01/28/25 Rx simvastatin 10 mg tablet 10 mg PO QPM #90 tabs 05/16/24 01/28/25 Rx tamsulosin 0.4 mg capsule (Flomax) 0.4 mg PO QPM 06/27/24 01/28/25 History alprazolam 0.25 mg tablet (Xanax) 0.25 mg PO QPM PRN anxiety #90 tabs 07/31/24 01/28/25 Rx fluticasone fur. 100 mcg-umeclid 1 inh inhalation QAM #3 Inhalers 08/27/24 01/28/25 Rx 62.5 mcg-vilant 25 mcg inhalat.powder (Trelegy Ellipta) levalbuterol tartrate 45 2 inh inhalation BID PRN shortness 08/27/24 01/28/25 Rx mcg/actuation aerosol inhaler of breath or wheezing #15 grams (Xopenex HFA) doxycycline hyclate 100 mg capsule 200 mg (2 x 100 mg) PO ONCE PRN 09/17/24 01/28/25 Rx Tick Bite #30 caps montelukast 10 mg tablet 10 mg PO QPM #90 tabs 11/11/24 01/28/25 Rx hydrochlorothiazide 12.5 mg tablet 12.5 mg PO QAM Edema/BP reading 11/26/24 01/28/25 Rx #90 tabs sodium chloride 7 % for 4 ml inhalation BID #240 mL 12/05/24 01/28/25 Rx nebulization compressor, for nebulizer #1 ea 01/09/25 Rx nebulizer accessories #1 ea 01/09/25 Rx citalopram 10 mg tablet 10 mg PO QAM #90 tabs 01/13/25 01/28/25 Rx citalopram 20 mg tablet 20 mg PO QAM #90 tabs 01/13/25 01/28/25 Rx amoxicillin 875 mg-potassium 1 tab PO Q12H 28 days #56 tabs 01/16/25 01/28/25 Rx clavulanate 125 mg tablet ciprofloxacin HCl 500 mg tablet 500 mg PO BID 10 days #20 tabs 01/27/25 01/28/25 Rx amlodipine 5 mg tablet 10 mg PO HS 01/28/25 01/28/25 History Past Med/Surg History Problem List (Updated 01/28/25 @ 15:33 by Vijay Ragland MD) Right arm weakness Stroke-like symptoms Pseudomonas aeruginosa infection Tick bite of back Exacerbation of bronchiectasis due to infection Lightheadedness (Chronic) Upper back pain Generalized anxiety disorder (Chronic) Chronic sinusitis, unspecified Joint ache Cough BPH with urinary obstruction Renal cyst Hypertension (Chronic) Chronic anemia ETD (eustachian tube dysfunction) Abnormal CT scan of lung Mixed conductive and sensorineural hearing loss Chronic obstructive pulmonary disease (Chronic) Bronchiectasis (Acute) Medical History Fatigue Snoring Hypersomnia Asymptomatic bacteriuria Urinary retention Encounter for pre-operative examination Anxiety Rheumatoid arthritis Snoring Rheumatoid arthritis Hearing loss Saccular bronchiectasis Chronic cough Chronic anemia Anxiety Impaired fasting blood sugar Pseudomonas respiratory infection Hypercholesteremia History of COVID-19 Hypertension BPH (benign prostatic hyperplasia) Dysfunction of both eustachian tubes PVCs (premature ventricular contractions) Peyronie's disease COPD (chronic obstructive pulmonary disease) TIA (transient ischemic attack) Surgical History History of endoscopic sinus surgery History of nasal septoplasty History of transurethral resection of prostate History of dental surgery History of tooth extraction History of bronchoscopy History of colonoscopy History of placement of ear tubes H/O pneumonectomy S/P tonsillectomy and adenoidectomy Family History Sister High cholesterol Breast cancer Hypertension Father Coronary heart disease CHF (congestive heart failure) Atrial fibrillation Ventricular arrhythmia Crohn's disease Myocardial infarction Hearing loss of both ears Hypertension Stroke Brother High cholesterol Hypertension Family hx colonic polyps Atrial fibrillation Grandmother Stroke Grandfather Renal failure Grandmother Cardiac disorder Unknown Benign prostate hyperplasia Mother High cholesterol Other specified forms of hearing loss Hypertension Dementia Non-Hodgkin lymphoma Uncle Family hx colonic polyps Other No family history of adverse response to anesthesia No family history of bleeding disorder Denies family history of Ovarian cancer Diabetes Alzheimer disease Lung cancer Colorectal cancer Social History Smoking Status: Never smoker Second Hand Exposure: Yes (hx); Do You Dip or Chew Tobacco: No; Hx Alcohol Use: Yes Alcohol type: wine Alcohol Intake Frequency: 2-3 x/Week (wine ) Alcohol Intake Frequency Comment: 2-3 drinks per day Hx Substance Use: No Preferred Language: Com[place] Communication Ability: Effective Visual Impairment: No Limitations Hearing Ability: Use of Hearing Aid Foundation Stage Teacher Required: No Beliefs That Will Affect Care: None marital status: Current Living Situation: Spouse current occupational status: retired 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 Seatbelt Use: always Sunscreen Use: Yes Assistive Devices: Hearing Aid - Bilateral Review of Systems Review of Systems: The patient denies chest pain, palpitations, lower extremity swelling, sore throat, fevers, chills, sweats, nausea, vomiting, diarrhea , constipation, abdominal pain, pelvic pain, blood in urine or stool, dysuria, urinary frequency or urgency, headache, memory loss, loss of consciousness, rash, abnormal bruising or bleeding, imbalance, focal weakness, numbness or tingling in arms or legs, back or neck pain, or night sweats. The review of systems is otherwise negative other than for that already noted above, and at least 10 systems have been reviewed. Physical Exam Physical Exam: The patient is awake, alert and oriented 3, well developed and well nourished, normocephalic and atraumatic, lying in bed and in no acute distress. HEENT--PERRL, EOMI, mucous membranes and oropharynx normal Neck--supple. No JVD. No bruits. Thyroid normal, trachea midline, no adenopathy. Heart--normal S1 and S2. No murmurs, rubs or gallops. Lungs--clear bilaterally, no respiratory distress, no accessory muscle use. Abdomen--normal bowel sounds and soft. Nontender. Nondistended, no hernias or masses, no organomegaly. Extremities--no cyanosis or clubbing. No edema. There are good distal pulses b/l. Dermatologic--normal skin turgor, normal color, no abnormal lymph nodes, no rash. Neurologic--cranial nerves II through XII grossly intact. Rheumatologic--normal range of motion. Psychiatric--normal affect. Results & Data Results & Data Vital Signs (Past 12 Hours) Vital Signs Temp Pulse Pulse Resp BP BP Pulse Ox 01/28/25 14:12 75 17 175/84 H 98 01/28/25 12:30 63 18 169/69 H 98 01/28/25 12:28 59 L 01/28/25 11:52 36.6 C 60 16 208/77 H 98 O2 Del Method 01/28/25 14:12 Room Air 01/28/25 12:30 Room Air 01/28/25 12:28 01/28/25 11:52 Room Air Laboratory Results Laboratory Results WBC 8.61 K/ul (4.8-10.8) 01/28/25 12:30 RBC 4.12 M/uL (4.70-6.10) L 01/28/25 12:30 Hgb 12.7 g/dl (14.0-18.0) L 01/28/25 12:30 Hct 37.0 % (42.0-52.0) L 01/28/25 12:30 MCV 89.8 fL (80.0-100.0) 01/28/25 12:30 MCH 30.8 pg (25.0-34.0) 01/28/25 12:30 MCHC 34.3 g/dL (32.0-36.0) 01/28/25 12:30 RDW Std Deviation 46.2 fL (36.4-46.3) 01/28/25 12:30 RDW Coeff of [place] 14.1 % (11.5-14.5) 01/28/25 12:30 Plt Count 308 K/uL (130-400) 01/28/25 12:30 MPV 9.1 fL (9.4-12.4) L 01/28/25 12:30 Immature Gran % (Auto) 0.1 % 01/28/25 12:30 Neut % (Auto) 68.0 % 01/28/25 12:30 Lymph % (Auto) 23.9 % 01/28/25 12:30 [place] % (Auto) 7.5 % 01/28/25 12:30 Eos % (Auto) 0.2 % 01/28/25 12:30 Baso % (Auto) 0.3 % 01/28/25 12:30 Neut # (Auto) 5.84 K/uL (1.40-6.50) 01/28/25 12:30 Lymph # (Auto) 2.06 K/uL (1.20-3.40) 01/28/25 12:30 [place] # (Auto) 0.65 K/uL (0.11-0.59) H 01/28/25 12:30 Eos # (Auto) 0.02 K/uL (0.00-0.50) 01/28/25 12:30 Baso # (Auto) 0.03 K/uL (0.00-0.20) 01/28/25 12:30 Immature Gran # (Auto) 0.01 K/uL (0.01-0.20) 01/28/25 12:30 PT 10.7 Seconds (9.0-12.0) 01/28/25 12:30 INR 1.0 (0.9-1.1) 01/28/25 12:30 APTT 29 Seconds (21-31) 01/28/25 12:30 PTT Ratio 1.1 01/28/25 12:30 Sodium 138 mmol/L (136-145) 01/28/25 12:30 Potassium 4.6 mmol/L (3.5-5.1) 01/28/25 12:30 Chloride 103 mmol/L (98-107) 01/28/25 12:30 Carbon Dioxide 29 mmol/L (21-32) 01/28/25 12:30 Anion Gap 6 (3-11) 01/28/25 12:30 BUN 17 mg/dl (6-23) 01/28/25 12:30 Creatinine 0.91 mg/dl (0.6-1.4) 01/28/25 12:30 Est Cr Clr Drug Dosing 71.3 ml/min 01/28/25 12:30 eGFR 87.35 01/28/25 12:30 BUN/Creatinine Ratio 18.7 (10-20) 01/28/25 12:30 Glucose 100 mg/dl (70-99(Fasting)) H 01/28/25 12:30 Calcium 9.5 mg/dl (8.6-10.3) 01/28/25 12:30 Magnesium 1.9 mg/dl (1.7-2.4) 01/28/25 12:30 Total Bilirubin 0.7 mg/dl (0.2-1.0) 01/28/25 12:30 AST 21 U/L (13-39) 01/28/25 12:30 ALT 14 U/L (7-52) 01/28/25 12:30 Alkaline Phosphatase 43 U/L (34-104) 01/28/25 12:30 Troponin I High Sens 6.8 pg/ml (0-20) 01/28/25 12:30 Total Protein 7.3 gm/dl (6.0-8.3) 01/28/25 12:30 Albumin 4.2 gm/dl (3.4-5.0) 01/28/25 12:30 Globulin 3.1 gm/dl (2.5-4.0) 01/28/25 12:30 Albumin/Globulin Ratio 1.4 (0.9-2) 01/28/25 12:30 Urine Color Yellow 01/28/25 13:07 Urine Appearance Clear (Clear) 01/28/25 13:07 Urine pH 5.5 (4.5-7.5) 01/28/25 13:07 Ur Specific [place] <= 1.005 (1.000-1.030) 01/28/25 13:07 Urine Protein Negative (Negative) 01/28/25 13:07 Urine Glucose (UA) Negative (Negative) 01/28/25 13:07 Urine Ketones Negative (Negative) 01/28/25 13:07 Urine Blood Negative (Negative) 01/28/25 13:07 Urine Nitrite Negative (Negative) 01/28/25 13:07 Urine Bilirubin Negative (Negative) 01/28/25 13:07 Urine Urobilinogen Negative (Negative) 01/28/25 13:07 Ur Leukocyte Esterase Negative (Negative) 01/28/25 13:07 Urine Comment 01/28/25 13:[address] 01/28/25 12:[address] OF THE BRAIN; CT ANGIOGRAM OF THE BRAIN CLINICAL HISTORY: Neurological deficit. Stroke like symptoms. COMPARISON STUDY: CT angiogram of the brain dated 08/14/2024 TECHNIQUE: Unenhanced axial CT scan of the brain is performed. Subsequently, following the IV administration of 119 cc of Optiray 320, CT angiogram of the brain was performed from the skull base to the vertex. Images are reviewed in the axial, sagittal, and coronal planes. 3-D MIPS images are created and assessed. IV contrast was administered without complication. A dose lowering technique was utilized adhering to the principles of ALARA. CT DOSE: 1201.43 mGy.cm FINDINGS: Brain parenchyma: There is age-related involutional change noting minimal microangiopathic disease. There is no hemorrhage, mass effect, or evidence of acute territorial ischemia by CT criteria. There is no evidence of enhancing mass lesion on the angiogram phase images. No extra-axial fluid collection is seen. Metzger-white matter differentiation is preserved. Ventricles, sulci, and cisterns: Prominent secondary to involutional change. CT angiogram of the brain: There is atherosclerotic calcification of the cavernous carotid and vertebral arteries. The [place] is developmentally complete. The internal carotid arteries at the skull base are patent, as are the anterior and middle cerebral arteries. The vertebrobasilar system and posterior cerebral arteries are patent. The vertebral arteries are codominant. There is no aneurysm, high-grade stenosis, or focal vessel cutoff identified throughout the intracranial circulation. Dural sinuses: Clear as visualized. Orbits: The bony orbits are intact. The orbital contents are normal as visualized. Sinuses and mastoids: There is evidence of previous paranasal sinus surgery. There is mild/moderate mucosal thickening and fluid within the maxillary antra. Moderate mucosal thickening is seen within the ethmoid sinuses. There is mild mucosal thickening within the frontal and sphenoid sinuses. Thickening and sclerosis of the sphenoid sinus napoles indicates chronicity. There is a left mastoid effusion. The right mastoid air cells are well pneumatized. Calvarium: Unremarkable. IMPRESSION: 1. There is no hemorrhage, mass effect, or evidence of acute territorial ischemia by CT criteria. 2. Unremarkable CT angiogram of the brain. ACT 112: Negative or not required by law. Electronically signed by: Huang Montoya M.D. 01/28/2025 1:53 PM Head CTA 01/28/25 12:[address] OF THE BRAIN; CT ANGIOGRAM OF THE BRAIN CLINICAL HISTORY: Neurological deficit. Stroke like symptoms. COMPARISON STUDY: CT angiogram of the brain dated 08/14/2024 TECHNIQUE: Unenhanced axial CT scan of the brain is performed. Subsequently, following the IV administration of 119 cc of Optiray 320, CT angiogram of the brain was performed from the skull base to the vertex. Images are reviewed in the axial, sagittal, and coronal planes. 3-D MIPS images are created and assessed. IV contrast was administered without complication. A dose lowering technique was utilized adhering to the principles of ALARA. CT DOSE: 1201.43 mGy.cm FINDINGS: Brain parenchyma: There is age-related involutional change noting minimal microangiopathic disease. There is no hemorrhage, mass effect, or evidence of acute territorial ischemia by CT criteria. There is no evidence of enhancing mass lesion on the angiogram phase images. No extra-axial fluid collection is seen. Metzger-white matter differentiation is preserved. Ventricles, sulci, and cisterns: Prominent secondary to involutional change. CT angiogram of the brain: There is atherosclerotic calcification of the cavernous carotid and vertebral arteries. The [place] is developmentally complete. The internal carotid arteries at the skull base are patent, as are the anterior and middle cerebral arteries. The vertebrobasilar system and posterior cerebral arteries are patent. The vertebral arteries are codominant. There is no aneurysm, high-grade stenosis, or focal vessel cutoff identified throughout the intracranial circulation. Dural sinuses: Clear as visualized. Orbits: The bony orbits are intact. The orbital contents are normal as vi sualized. Sinuses and mastoids: There is evidence of previous paranasal sinus surgery. There is mild/moderate mucosal thickening and fluid within the maxillary antra. Moderate mucosal thickening is seen within the ethmoid sinuses. There is mild mucosal thickening within the frontal and sphenoid sinuses. Thickening and sclerosis of the sphenoid sinus napoles indicates chronicity. There is a left ma stoid effusion. The right mastoid air cells are well pneumatized. Calvarium: Unremarkable. IMPRESSION: 1. There is no hemorrhage, mass effect, or evidence of acute territorial ischemia by CT criteria. 2. Unremarkable CT angiogram of the brain. ACT 112: Negative or not required by law. Electronically signed by: Huang Montoya M.D. 01/28/2025 1:53 PM Neck CTA 01/28/25 12:09 CT ANGIOGRAPHY OF THE NECK WITH CONTRAST CLINICAL HISTORY: neuro deficit, acute stroke suspected COMPARISON STUDY: CTA of the neck August 14, 2024. Technique: CT angiography of the carotid and vertebral arteries was obtained using Optiray and 3D reconstruction on an independent workstation. NASCET criteria was utilized. Automated exposure control was utilized for the study. A dose lowering technique was utilized adhering to the principles of ALARA. Findings: Emphysema is incidentally noted within visualized portions of the lung apices. A few ill-defined groundglass opacities within the right upper lobe measure up to 8 mm. There is no cervical lymphadenopathy. No cervical spine fractures are identified. The bilateral common carotid, cervical internal car otid and vertebral arteries are patent. There is no stenosis, dissection or aneurysm within the neck. There is mild plaque within the proximal bilateral internal carotid arteries without stenosis. IMPRESSION: 1. No stenosis or dissection within the bilateral common carotid, cervical internal carotid or vertebral arteries. 2. A few ill-defined ground glass opacities within the right upper lobe suggestive of a mild infectious process. A chest CT in 3 months to ensure resolution is recommended. ACT 112: Negative or not required by law. Electronically signed by: Lawson Chambers M.D. 01/28/2025 1:54 PM Code Status & VTE Plan Code Status Full code VTE Prophylaxis Plan VTE Prophylaxis will be ordered: Yes PG Care Time/CCT Total # of Minutes Spent Total Time Spent with Patient: Total time spent is greater than 50% in coordination of care (as documented) at patient's floor/unit and/or counseling patient: Coding Level of Care Code 29225 INT INP/OBS CARE 3/75MIN Diagnoses Stroke-like symptoms R29.90 Right arm weakness R29.898 Pseudomonas aeruginosa infection A49.8 Generalized anxiety disorder F41.1
[2025-01-28] MEDS ORDERED: PHARMACIST DISCHARGE MED REC CONSULT PRN (15:54)
[2025-01-28] MEDS ORDERED: ONDANSETRON INJ 2 MG/ML 2 ML VIAL IV PRN (15:54)
[2025-01-28] MEDS ORDERED: ACETAMINOPHEN 325 MG TAB PO PRN (15:54)
[2025-01-28] MEDS ORDERED: NON-FORMULARY MEDICATION (Potassium Gluconate 595 mg (99 mg) Tablet) PO PRN (15:54)
[2025-01-28] MEDS ORDERED: LEVALBUTEROL TARTRATE 15 GM HFA.AER.AD INH PRN (15:54)
[2025-01-28] MEDS: AMOXICILLIN/CLAVULANATE 875 MG TAB PO SCH (18:28)
[2025-01-28] MEDS: SODIUM CHLOR 7% 4 ML NEB INH SCH (19:40)
[2025-01-28] MEDS: MONTELUKAST SODIUM 10 MG TABLET PO SCH (20:35)
[2025-01-28] MEDS: ASPIRIN 81 MG ECTAB PO SCH (20:35)
[2025-01-28] MEDS: TAMSULOSIN HCL 0.4 MG CAP PO SCH (20:35)
[2025-01-28] MEDS: CIPROFLOXACIN 500 MG TAB PO SCH (20:36)
[2025-01-28] MEDS: LOSARTAN POTASSIUM 50 MG TAB PO SCH (20:36)
--- NOTE | 2025-01-29 00:41 | Magnetic Resonance Report ---
Exam(s): MRI HEAD Without Contrast EXAM: MR Head Without Intravenous Contrast CLINICAL HISTORY: Reason for exam: stroke=like symptoms. TECHNIQUE: Magnetic resonance images of the head/brain without intravenous contrast in multiple planes. COMPARISON: Prior brain MRI from February 10, [address] from January 28, 2025. FINDINGS: Brain: Mild nonspecific white matter changes. No mass. No hemorrhage. No acute infarct. The flow voids at the base the brain are intact. Ventricles: Unremarkable. No ventriculomegaly. Bones/joints: Unremarkable. No acute fracture. Sinuses: Chronic maxillary and ethmoid sinusitis. No acute sinusitis. Mastoid air cells: There is a small mild fluid in the mastoid air cells. No mastoid effusion. Orbits: Unremarkable as visualized. IMPRESSION: No evidence of acute intracranial pathology. Electronically signed by: Renetta Burns MD 01/29/25 00:40 AM
[2025-01-29 05:53] LABS: Hematocrit (blood only) 36.3 % (42.0-52.0); Hemoglobin 12.5 g/dl (14.0-18.0); Immature Granulocytes # (auto) 0.01 K/uL (0.01-0.20); Immature Granulocytes % (auto) 0.2 %; Mean Corpuscular Hemoglobin 30.6 pg (25.0-34.0); Mean Corpuscular Volume 89.0 fL (80.0-100.0); Platelet Count 295 K/uL (130-400); RDW Standard Deviation 46.3 fL (36.4-46.3); Red Blood Count 4.08 M/uL (4.70-6.10); White Blood Count 6.52 K/ul (4.8-10.8)
[2025-01-29 06:24] LABS: Alanine Aminotransferase 12.0 U/L (7-52); Albumin Globulin Ratio 1.3 (0.9-2); Alkaline Phosphatase 38.0 U/L (34-104); Anion Gap 6.0 (3-11); Bilirubin,Total 0.8 mg/dl (0.2-1.0); Blood Urea Nitrogen 15.0 mg/dl (6-23); Calcium 8.8 mg/dl (8.6-10.3); Carbon Dioxide 28.0 mmol/L (21-32); Chloride 105.0 mmol/L (98-107); Cholesterol 132.0 mg/dl (0-200); Creatinine Clr Calc Pharmacy 66.2 ml/min; Globulin 2.7 gm/dl (2.5-4.0); Glucose 91.0 mg/dl (70-99(Fasting)); HDL Cholesterol 57.0 mg/dl; Magnesium 2.0 mg/dl (1.7-2.4); Potassium 4.0 mmol/L (3.5-5.1); Sodium 139.0 mmol/L (136-145); Total Protein 6.3 gm/dl (6.0-8.3); Triglycerides 61.0 mg/dl (0-150)
[2025-01-29 06:35] LABS: INR 1.0 (0.9-1.1); Partial Thromboplastin Time 30 Seconds (21-31); Prothrombin Time 11.1 Seconds (9.0-12.0)
[2025-01-29] MEDS: FLUTICASONE FUROATE 100MCG 14 PUFFS/INHALER INH SCH (07:58)
[2025-01-29] MEDS: UMECLIDINIUM/VILANTEROL 62.5/25MCG 7 PUFFS/INHALER INH SCH (07:59)
[2025-01-29] MEDS: CITALOPRAM 20 MG TAB PO SCH (07:59)
[2025-01-29] MEDS: hydroCHLOROthiazide 25 MG TAB PO SCH (08:01)
[2025-01-29] MEDS ORDERED: NON-FORMULARY MEDICATION (Fluticasone-Umeclidin-Vilanter [Trelegy Ellipta] 100-62.5-25 mcg INH SCH (09:00)
[2025-01-29 09:16] LABS: Hemoglobin A1C 5.9 % (4.5-5.6)
--- NOTE | 2025-01-29 10:14 | Hospitalist Progress Note ---
Date of Service January 29, 2025 Assessment & Plan (1) Stroke-like symptoms: Plan: -symptoms resolved -MRI negative -CT scan head without contrast negative -CTA head and neck negative -MRI brain is ordered and pending -Echocardiogram performed in August was negative will not be repeated (2) Pseudomonas aeruginosa infection: Plan: Had a prescription for Cipro 500 mg p.o. twice daily called in by pulmonology yesterday. He completed day 1 of 14 so far Abx changed to levaquin ID consulted as patient symptoms are persistent over 13 days. (3) Generalized anxiety disorder: Plan: Continue citalopram, and alprazolam as needed Plan The patient is a 74-year-old male with a past medical history including Pseudomonas lung infection, chronic bronchiectasis, generalized anxiety disorder BPH with urinary obstruction, hypertension, eustachian tube dysfunction, mixed conductive and sensorineural hearing loss, COPD, and history of tick bites. The patient reports that he was trying to write a check this morning with his right arm, and for 15 minutes he was not able to do it. Since that time the symptoms have resolved completely. He has no other symptoms, including involvement of right leg, speech, swallowing headaches dizziness etc. He had a similar episode about 8 years ago involving the right arm, but at that time also he looked in the mirror and saw that he had a facial droop as well. This time he did not have a facial droop. He continues to take his aspirin on a regular basis as directed, and all his other medications he has been taking regularly as well. He is presently on ciprofloxacin they began day 1 of 10 for a potential lung infection, and has been on Augmentin day 13 out of 28 for a sinus infection. He does not feel that his sinus infection has responded to the Augmentin. He reports that he has a sense of brain fog, which had happened once before with a sinus infection that responded to Augmentin, but the brain fog is not responding this time. Admission and Anticipated Discharge Date Admission Date: January 28, 2025 Subjective No events overnight. Pt's has no further neurological symptoms. He is still complaining of sinus pressure and discomfort. Review of Systems Review of Systems: CONST: Negative for fever, body aches and chills. HENT: Negative for neck pain/stiffness, headache, congestion, sore throat, swelling. EYES: Negative for discharge/pain or vision changes. RESP: Negative for cough/hemoptysis and shortness of breath. CV: Negative chest pain, difficulty breathing, palpitations. ABD: Negative pain, nausea, vomiting. : Negative increase frequency, dysuria, blood in urine or stool. MUSC: Negative for muscle aches, edema. SKIN: Negative rash, lesions/sores. NEURO: Negative headache, dizziness, weakness. Physical Exam Physical Exam: GENERAL APPEARANCE NAD, activity normal for age, well developed/ well nourished, no cyanosis, pallor, or diaphoresis. EYES lids/conjunctiva normal. EARS/NOSE/THROAT Mucous membranes moist, nares normal, lips/teeth normal uvula midline without oral pharyngeal erythema, exudate or swelling TMs normal bilaterally. No lymphangitis/lymphedema. HEAD/NECK normocephalic atraumatic, no facial trauma, neck is supple. RESPIRATORY respiratory effort normal, speaks in full sentences, no tripod position, no accessory muscle use. Lungs clear to auscultation without rhonchi, wheezes, rales CARDIAC Regular rate and rhythm, no edema. ABDOMINAL Soft, ND/NT. No evidence of fluid wave. No pulsatile masses on exam, rebound tenderness, Parker sign or pain over Mcburney's point. MUSCLES/EXTREMITIES No abnormal range of motion, no swelling. SKIN Warm, pink and dry. No rashes, dermatoses, petechiae or lesions. NEUROLOGICAL Speech is clear and appropriate. Normal level of consciousness. G ait and coordination are normal. 5/5 strength in all extremities. PSYCH Normal mood and affect. Judgement/competence is appropriate Results & Data Results & Data Vital Signs (Past 12 Hours) Vital Signs Temp Pulse Resp BP Pulse Ox O2 Del Method 01/29/25 07:23 36.6 C 61 19 150/66 H 97 Room Air 01/29/25 07:19 58 L 18 96 Room Air 01/29/25 03:13 36.7 C 55 L 18 173/80 H 95 Room Air 01/28/25 23:21 36.7 C 51 L 18 164/81 H 95 Room Air PG Care Time/CCT Total # of Minutes Spent Total Time Spent with Patient: Total time spent is greater than 50% in coordination of care (as documented) at patient's floor/unit and/or counseling patient: Coding Level of Care Code 70212 SUB INP/OBS CARE 2/35MIN Diagnoses Stroke-like symptoms R29.90 Pseudomonas aeruginosa infection A49.8 Generalized anxiety disorder F41.1
--- NOTE | 2025-01-29 11:52 | Infectious Disease Consult ---
Date of Consultation January 29, 2025 Assessment & Plan (1) Chronic sinusitis, unspecified: (2) Pseudomonas aeruginosa infection: Plan Problems: #Chronic sinusitis #History of bronchiectasis with Pseudomonas colonization Micro: 01/28 Sputum cx: pending. GS many GPCs 10/15 Sputum cx: Pseudomonas aeruginosa (I amikacin, otherwise S), heavy normal abby 08/26 Sputum cx: Pseudomonas aeruginosa (I amikacin, cefepime. R cipro, levo. S aztreonam, ceftaz, dakota, tobra, pip/tazo) Abx: Levofloxacin 01/29 - present Augmentin 01/17 - present Cipro 01/27 - 01/29 74 yo M with history of bronchiectasis and Pseudomonas colonization, HTN, COPD, BPH, chronic sinusitis, anxiety who presented on 01/28 because he was trying to write a check that morning with his R arm, but was unable to do so for 15 minutes. Since that time, his symptoms resolved completely. Stroke work-up with CT head, CTA head/neck, MRI brain negative. He also reports that he has had a lot of sinus congestion lately, for which he called ENT and was prescribed a 28 day course of Augmentin, which he started on 01/17. He has not noticed improvement with this. Around 01/27, he noted that his chronic cough was more productive, with thicker green sputum. He called his p ulmonologist and was prescribed ciprofloxacin 500 mg PO BID for a 10 day course. Denies fevers. Denies rhinorrhea, but reports a lot of post nasal drip. Reports "brain fog", and feeling more lethargic and fatigued. States he also had brain fog two other times in the past year, and was evaluated in the ED in 02/2024 and 08/2024 and prescribed antibiotics, and his symptoms resolved. Quinolones are lis juan as an allergy--per my conversation with the patient by phone, he reports a history of arrhythmia with quinolones. He was not evaluated with an EKG at that time, but states that ciprofloxacin 750 mg PO BID caused his heart to feel "erratic", but he tolerates 500 mg PO BID ok. States he is willing to try levofloxacin again. CXR performed 01/29, with no consolidation seen. CTA neck from 01/28 with a few ill-defined GGOs in RUL suggestive of mild infectious process. CT head noted mild/moderate mucosal thickening and fluid within the maxillary antra, moderate mucosal thickening within ethmoid sinuses, mild mucosal thickening within frontal and sphenoid sinuses. Discussion: Pt appears to have chronic sinusitis. In the absence of fevers, leukocytosis, increased O2 requirement, consolidation on CXR, seems less likely that pt has a pneumonia. Do not think pt needs both fluoroquinolone and Augmentin, due to similar spectrums of coverage. Will follow-up sputum culture Recommendations: - Follow-up sputum culture - CT chest for further evaluation, given GGOs seen in RUL on CTA neck - Agree with switching to levofloxacin 750 mg PO q24h - Will stop Augmentin Will continue to follow. Consultation Information This patient recommendation is based on a telemedicine consult request which was completed asynchronously through chart review and information provided by the primary physician. The patient was not seen or examined today. The evaluation is consultative in nature and all patient care and treatment decisions can either be accepted or rejected by the patient's primary hospital-based treating physician using their own independent medical judgment for their patient. Director Supply Chain contact information: Please call [facility] . (Phone Number For Physician Use Only) An e-consult was performed as the video cart is not functioning. I spoke to the patient by phone. Time Spent Reviewing Chart: 31+ minutes History of Present Illness Reason for Consultation: c/f Pseudomonas pneumonia, sinusitis Attending Physician: Michael Morris MD History of Present Illness 74 yo M with history of bronchiectasis and Pseudomonas colonization, HTN, COPD, BPH, chronic sinusitis, anxiety who presented on 01/28 because he was trying to write a check that morning with his R arm, but was unable to do so for 15 minutes. Since that time, his symptoms resolved completely. He also reports that he has had a lot of sinus congestion lately, for which he called ENT and was prescribed a 28 day course of Augmentin, which he started on 01/17. He has not noticed improvement with this. Around 01/27, he noted that his chronic cough was more productive, with thicker green sputum. He called his photo equipment technician and was prescribed ciprofloxacin 500 mg PO BID for a 10 day course. Denies fevers. Denies rhinorrhea, but reports a lot of post nasal drip. Reports "brain fog", and feeling more lethargic and fatigued. States he also had brain fog two other times in the past year, and was evaluated in the ED in 02/2024 and 08/2024 and prescribed antibiotics, and his symptoms resolved. 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 He was not evaluated with an EKG at that time, but states that ciprofloxacin 750 mg PO BID caused his heart to feel "erratic", but he tolerates 500 mg PO BID ok. States he is willing to try levofloxacin again. Allergies Allergy/AdvReac Type Severity Reaction Status Date / Time hydroxychloroquine Allergy Severe arrhthymia Verified 01/28/25 10:48 levofloxacin Allergy Severe arrhythmia Verified 01/28/25 10:48 moxifloxacin [From Avelox] Allergy Severe arrhythmia Verified 01/28/25 10:48 naproxen [From Aleve] Allergy Severe arrhythmia Verified 01/28/25 10:48 Quinolones Allergy Severe arrhythmia Verified 01/28/25 10:48 tomato Allergy Intermediate hives Verified 01/28/25 10:48 tobramycin AdvReac Intermediate Wheezing Verified 01/28/25 10:48 Home Medications Medication Instructions Recorded Confirmed Type aspirin 81 mg tablet,delayed 81 mg PO QPM 02/19/21 01/28/25 History release (Adult Low Dose Aspirin) potassium gluconate 595 mg (99 mg) 595 mg PO DAILY PRN muscle aches 12/14/22 01/28/25 History tablet losartan 50 mg tablet 50 mg PO BID 90 days #180 tabs 01/23/24 01/28/25 Rx simvastatin 10 mg tablet 10 mg PO QPM #90 tabs 05/16/24 01/28/25 Rx tamsulosin 0.4 mg capsule (Flomax) 0.4 mg PO QPM 06/27/24 01/28/25 History alprazolam 0.25 mg tablet (Xanax) 0.25 mg PO QPM PRN anxiety #90 tabs 07/31/24 01/28/25 Rx fluticasone fur. 100 mcg-umeclid 1 inh inhalation QAM #3 Inhalers 08/27/24 01/28/25 Rx 62.5 mcg-vilant 25 mcg inhalat.powder (Trelegy Ellipta) levalbuterol tartrate 45 2 inh inhalation BID PRN shortness 08/27/24 01/28/25 Rx mcg/actuation aerosol inhaler of breath or wheezing #15 grams (Xopenex HFA) doxycycline hyclate 100 mg capsule 200 mg (2 x 100 mg) PO ONCE PRN 09/17/24 01/28/25 Rx Tick Bite #30 caps montelukast 10 mg tablet 10 mg PO QPM #90 tabs 11/11/24 01/28/25 Rx hydrochlorothiazide 12.5 mg tablet 12.5 mg PO QAM Edema/BP reading 11/26/24 01/28/25 Rx #90 tabs sodium chloride 7 % for 4 ml inhalation BID #240 mL 12/05/24 01/28/25 Rx nebulization compressor, for nebulizer #1 ea 01/09/25 Rx nebulizer accessories #1 ea 01/09/25 Rx citalopram 10 mg tablet 10 mg PO QAM #90 tabs 01/13/25 01/28/25 Rx citalopram 20 mg tablet 20 mg PO QAM #90 tabs 01/13/25 01/28/25 Rx amoxicillin 875 mg-potassium 1 tab PO Q12H 28 days #56 tabs 01/16/25 01/28/25 Rx clavulanate 125 mg tablet ciprofloxacin HCl 500 mg tablet 500 mg PO BID 10 days #20 tabs 01/27/25 01/28/25 Rx amlodipine 5 mg tablet 10 mg PO HS 01/28/25 01/28/25 History Patient History Medical History Fatigue Snoring Hypersomnia Asymptomatic bacteriuria Urinary retention Encounter for pre-operative examination Anxiety Rheumatoid arthritis Snoring occasionally- sleep study 12/2023- no SHANIA Rheumatoid arthritis stable per patient no family independence case manager ; only PCP Hearing loss hearing aids bilat. 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 Follows with pulm only takes antibiotics PRN; does pulmonary toilet Hypercholesteremia History of COVID-19 03/28/23 (tested at PCP)- URI, sinus congestion/bad cold, treated with Paxlovid (had side effects from drug and stopped taking) > no residual symptoms Hypertension BPH (benign prostatic hyperplasia) - hx TURP 05/16/23, [facility]; still has some LUTS - follows with urology Dysfunction of both eustachian tubes PVCs (premature ventricular contractions) follows with PCP Peyronie's disease COPD (chronic obstructive pulmonary disease) - breathing at baseline TIA (transient ischemic attack) 2017, felt r/t elevated BP Surgical History History of endoscopic sinus surgery 07/16/24-Dr. Chambers History of nasal septoplasty w/bilateral inferior turbinate reduction-07/16/24-Dr. Chambers History of transurethral resection of prostate 05/16/23 History of dental surgery dental implant History of tooth extraction History of bronchoscopy History of colonoscopy History of placement of ear tubes in office on 04/03/17-Dr. Rodriguez H/O pneumonectomy History of lung segmental resection (lower left lung and middle right lung removed at age of 13)- felt r/t complications from PNA at baby S/P tonsillectomy and adenoidectomy Family History Sister High cholesterol Breast cancer Hypertension Father Coronary heart disease CHF (congestive heart failure) Atrial fibrillation Ventricular arrhythmia Crohn's disease Myocardial infarction Hearing loss of both ears Hypertension Stroke Brother High cholesterol Hypertension Family hx colonic polyps Atrial fibrillation Grandmother Stroke Grandfather Renal failure Grandmother Cardiac disorder Unknown Benign prostate hyperplasia Mother High cholesterol Other specified forms of hearing loss Hypertension Dementia Non-Hodgkin lymphoma Uncle Family hx colonic polyps Other No family history of adverse response to anesthesia No family history of bleeding disorder Denies family history of Ovarian cancer Diabetes Alzheimer disease Lung cancer Colorectal cancer Social History Smoking Status: Never smoker Second Hand Exposure: No; Do You Dip or Chew Tobacco: No; Hx Alcohol Use: No Hx Substance Use: No Preferred Language: Brazilian Communication Ability: Effective Visual Impairment: No Limitations Hearing Ability: Use of Hearing Aid Front End Web Developer Required: No Beliefs That Will Affect Care: None marital status: Current Living Situation: Spouse current occupational status: retired 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 Seatbelt Use: always Sunscreen Use: Yes Assistive Devices: None Results & Data Vital Signs (Past 12 Hours) Vital Signs Temp Pulse Resp BP Pulse Ox O2 Del Method 01/29/25 11:27 36.8 C 63 18 170/79 H 96 Room Air 01/29/25 07:23 36.6 C 61 19 150/66 H 97 Room Air 01/29/25 07:19 58 L 18 96 Room Air 01/29/25 03:13 36.7 C 55 L 18 173/80 H 95 Room Air Laboratory Results Short CBC 01/28/25 01/29/25 Range/Units 12:30 05:23 WBC 8.61 6.52 (4.8-10.8) K/ul Hgb 12.7 L 12.5 L (14.0-18.0) g/dl Hct 37.0 L 36.3 L (42.0-52.0) % Plt Count 308 295 (130-400) K/uL BMP 01/28/25 01/29/25 12:30 05:23 Sodium 138 139 Potassium 4.6 4.0 Chloride 103 105 Carbon Dioxide 29 28 BUN 17 15 Creatinine 0.91 0.98 Glucose 100 H 91 Calcium 9.5 8.8 Liver Function 01/28/25 01/29/25 Range/Units 12:30 05:23 Total Bilirubin 0.7 0.8 (0.2-1.0) mg/dl AST 21 17 (13-39) U/L ALT 14 12 (7-52) U/L Alkaline Phosphatase 43 38 (34-104) U/L Albumin 4.2 3.6 (3.4-5.0) gm/dl Urine 01/28/25 Range/Units 13:07 Urine Color Yellow Urine Appearance Clear (Clear) Urine pH 5.5 (4.5-7.5) Ur Specific Hammond <= 1.005 (1.000-1.030) Urine Protein Negative (Negative) Urine Glucose (UA) Negative (Negative) Diagnostic Findings Head CT 08/19/25 12:[address] OF THE BRAIN; CT ANGIOGRAM OF THE BRAIN CLINICAL HISTORY: Neurological deficit. Stroke like symptoms. COMPARISON STUDY: CT angiogram of the brain dated 08/14/2024 TECHNIQUE: Unenhanced axial CT scan of the brain is performed. Subsequently, following the IV administration of 119 cc of Optiray 320, CT angiogram of the brain was performed from the skull base to the vertex. Images are reviewed in the axial, sagittal, and coronal planes. 3-D MIPS images are created and assessed. IV contrast was administered without complication. A dose lowering technique was utilized adhering to the principles of ALARA. CT DOSE: 1201.43 mGy.cm FINDINGS: Brain parenchyma: There is age-related involutional change noting minimal microangiopathic disease. There is no hemorrhage, mass effect, or evidence of acute territorial ischemia by CT criteria. There is no evidence of enhancing mass lesion on the angiogram phase images. No extra-axial fluid collection is seen. Metzger-white matter differentiation is preserved. Ventricles, sulci, and cisterns: Prominent secondary to involutional change. CT angiogram of the brain: There is atherosclerotic calcification of the cavernous carotid and vertebral arteries. The bre[place] mission of [place] is developmentally complete. The internal carotid arteries at the skull base are patent, as are the anterior and middle cerebral arteries. The vertebrobasilar system and posterior cerebral arteries are patent. The vertebral arteries are codominant. There is no aneurysm, high-grade stenosis, or focal vessel cutoff identified throughout the intracranial circulation. Dural sinuses: Clear as visualized. Orbits: The bony orbits are intact. The orbital contents are normal as visualized. Sinuses and mastoids: There is evidence of previous paranasal sinus surgery. There is mild/moderate mucosal thickening and fluid within the maxillary antra. Moderate mucosal thickening is seen within the ethmoid sinuses. There is mild mucosal thickening within the frontal and sphenoid sinuses. Thickening and sclerosis of the sphenoid sinus napoles indicates chronicity. There is a left mastoid effusion. The right mastoid air cells are well pneumatized. Calvarium: Unremarkable. IMPRESSION: 1. There is no hemorrhage, mass effect, or evidence of acute territorial ischemia by CT criteria. 2. Unremarkable CT angiogram of the brain. ACT 112: Negative or not required by law. Electronically signed by: Huang Montoya M.D. 01/28/2025 1:53 PM Head CTA 01/28/25 12:[address] OF THE BRAIN; CT ANGIOGRAM OF THE BRAIN CLINICAL HISTORY: Neurological deficit. Stroke like symptoms. COMPARISON STUDY: CT angiogram of the brain dated 08/14/2024 TECHNIQUE: Unenhanced axial CT scan of the brain is performed. Subsequently, following the IV administration of 119 cc of Optiray 320, CT angiogram of the brain was performed from the skull base to the vertex. Images are reviewed in the axial, sagittal, and coronal planes. 3-D MIPS images are created and assessed. IV contrast was administered without complication. A dose lowering technique was utilized adhering to the principles of ALARA. CT DOSE: 1201.43 mGy.cm FINDINGS: Brain parenchyma: There is age-related involutional change noting minimal microangiopathic disease. There is no hemorrhage, mass effect, or evidence of acute territorial ischemia by CT criteria. There is no evidence of enhancing mass lesion on the angiogram phase images. No extra-axial fluid collection is seen. Metzger-white matter differentiation is preserved. Ventricles, sulci, and cisterns: Prominent secondary to involutional change. CT angiogram of the brain: There is atherosclerotic calcification of the cavernous carotid and vertebral arteries. The bre[place] mission of [place] is developmentally complete. The internal carotid arteries at the skull base are patent, as are the anterior and middle cerebral arteries. The vertebrobasilar system and posterior cerebral arteries are patent. The vertebral arteries are codominant. There is no aneurysm, high-grade stenosis, or focal vessel cutoff identified throughout the intracranial circulation. Dural sinuses: Clear as visualized. Orbits: The bony orbits are intact. The orbital contents are normal as visualized. Sinuses and mastoids: There is evidence of previous paranasal sinus surgery. There is mild/moderate mucosal thickening and fluid within the maxillary antra. Moderate mucosal thickening is seen within the ethmoid sinuses. There is mild mucosal thickening within the frontal and sphenoid sinuses. Thickening and sclerosis of the sphenoid sinus napoles indicates chronicity. There is a left mastoid effusion. The right mastoid air cells are well pneumatized. Calvarium: Unremarkable. IMPRESSION: 1. There is no hemorrhage, mass effect, or evidence of acute territorial ischemia by CT criteria. 2. Unremarkable CT angiogram of the brain. ACT 112: Negative or not required by law. Electronically signed by: Huang Montoya M.D. 01/28/2025 1:53 PM Neck CTA 01/28/25 12:09 CT ANGIOGRAPHY OF THE NECK WITH CONTRAST CLINICAL HISTORY: neuro deficit, acute stroke suspected COMPARISON STUDY: CTA of the neck August 14, 2024. Technique: CT angiography of the carotid and vertebral arteries was obtained using Optiray and 3D reconstruction on an independent workstation. NASCET criteria was utilized. Automated exposure control was utilized for the study. A dose lowering technique was utilized adhering to the principles of ALARA. Findings: Emphysema is incidentally noted within visualized portions of the lung apices. A few ill-defined groundglass opacities within the right upper lobe measure up to 8 mm. There is no cervical lymphadenopathy. No cervical spine fractures are identified. The bilateral common carotid, cervical internal carotid and vertebral arteries are patent. There is no stenosis, dissection or aneurysm within the neck. There is mild plaque within the proximal bilateral internal carotid arteries without stenosis. IMPRESSION: 1. No stenosis or dissection within the bilateral common carotid, cervical internal carotid or vertebral arteries. 2. A few ill-defined ground glass opacities within the right upper lobe sugge stive of a mild infectious process. A chest CT in 3 months to ensure resolution is recommended. ACT 112: Negative or not required by law. Electronically signed by: Lawson Chambers M.D. 01/28/2025 1:54 PM Brain MRI 01/28/25 15:54 Exam(s): MRI HEAD Without Contrast EXAM: MR Head Without Intravenous Contrast CLINICAL HISTORY: Reason for exam: stroke=like symptoms. TECHNIQUE: Magnetic resonance images of the head/brain without intravenous contrast in multiple planes. COMPARISON: Prior brain MRI from February 10, [address] from January 28, 2025. FINDINGS: Brain: Mild nonspecific white matter changes. No mass. No hemorrhage. No acute infarct. The flow voids at the base the brain are intact. Ventricles: Unremarkable. No ventriculomegaly. Bones/joints: Unremarkable. No acute fracture. Sinuses: Chronic maxillary and ethmoid sinusitis. No acute sinusitis. Mastoid air cells: There is a small mild fluid in the mastoid air cells. No mastoid effusion. Orbits: Unremarkable as visualized. IMPRESSION: No evidence of acute intracranial pathology. Electronically signed by: Renetta Burns MD 01/29/25 00:40 AM Chest X-Ray 01/29/25 11:41 XR chest 1V portable CLINICAL HISTORY: r/o pna COMPARISON STUDY: 03/09/2025 FINDINGS: Heart size and pulmonary vasculature are normal. No consolidation or pleural effusion seen. No pneumothorax. IMPRESSION: No pneumonia seen. ACT 112: Negative or not required by law. Electronically signed by: Max Arriaza M.D. 01/29/2025 12:15 PM Medications Administered Current Inpatient Medications Acetaminophen (Acetaminophen 325 Mg Tab) 650 mg PO Q4H PRN PRN Reason: Pain or Fever Stop: 02/27/25 15:53 Alprazolam (Alprazolam 0.25 Mg Tablet) 0.25 mg PO QPM PRN PRN Reason: anxiety Stop: 02/27/25 15:53 Last Admin: 01/28/25 22:13 Dose: 0.25 mg Amlodipine Besylate (Amlodipine Besylate 5 Mg Tab) 10 mg PO HS [facility] Stop: 02/27/25 20:59 Last Admin: 01/28/25 20:35 Dose: 10 mg Amoxicillin/Clavulanate Potassium (Amoxicillin/Clavulanate 875 Mg Tab) 1 tab PO BIDM [facility]; Protocol Stop: 02/07/25 16:59 Last Admin: 01/29/25 07:59 Dose: 1 tab Aspirin (Aspirin 81 Mg Ectab) 81 mg PO QPM [facility] Stop: 02/27/25 20:59 Last Admin: 01/28/25 20:35 Dose: 81 mg Citalopram Hydrobromide (Citalopram 20 Mg Tab) 30 mg PO QAM [facility] Stop: 02/28/25 08:59 Last Admin: 01/29/25 07:59 Dose: 30 mg Fluticasone Furoate (Fluticasone Furoate 100mcg 14 Puffs/Inhaler) 1 puffs INH DAILY [facility] Stop: 02/28/25 08:59 Last Admin: 01/29/25 07:58 Dose: 1 puffs Hydrochlorothiazide (Hydrochlorothiazide 25 Mg Tab) 12.5 mg PO QAM [facility] Stop: 02/28/25 08:59 Last Admin: 01/29/25 08:01 Dose: 12.5 mg Levalbuterol HCl (Levalbuterol Tartrate 15 Gm Hfa.Aer.Ad) 2 puffs INH BIDR PRN PRN Reason: shortness of breath or wheezin Stop: 02/27/25 15:53 Levofloxacin (Levofloxacin 750 Mg Tab) 750 mg PO HS [facility]; Protocol Stop: 02/03/25 20:59 Losartan Potassium (Losartan Potassium 50 Mg Tab) 50 mg PO BID [facility] Stop: 02/27/25 20:59 Last Admin: 01/29/25 08:02 Dose: 50 mg Miscellaneous Information (Pharmacist Discharge Med Rec Consult) 1 each N/A UD PRN PRN Reason: Consult Stop: 02/27/25 15:53 Montelukast Sodium (Montelukast Sodium 10 Mg Tablet) 10 mg PO QPM [facility] Stop: 02/27/25 20:59 Last Admin: 01/28/25 20:35 Dose: 10 mg Ondansetron HCl (Ondansetron Inj 2 Mg/Ml 2 Ml Vial) 4 mg IV Q6H PRN PRN Reason: NAUSEA/VOMITING Stop: 02/27/25 15:53 Simvastatin (Simvastatin 40 Mg Tab) 40 mg PO QPM [facility] Stop: 02/27/25 20:59 Sodium Chloride (Sodium Chlor 7% 4 Ml Neb) 4 ml INH BIDR [facility] Stop: 02/27/25 18:59 Last Admin: 01/29/25 07:19 Dose: 4 ml Tamsulosin HCl (Tamsulosin Hcl 0.4 Mg Cap) 0.4 mg PO QPM [facility] Stop: 02/27/25 20:59 Last Admin: 01/28/25 20:35 Dose: 0.4 mg Umeclidinium/Vilanterol (Umeclidinium/Vilanterol 62.5/25mcg 7 Puffs/Inhaler) 1 puffs INH DAILY [facility] Stop: 02/28/25 08:59 Last Admin: 01/29/25 07:59 Dose: 1 puffs (1) Chronic sinusitis, unspecified Sinusitis location: unspecified location Qualified Code(s): J32.9 - Chronic sinusitis, unspecified
--- NOTE | 2025-01-29 12:17 | XRay Report ---
XR chest 1V portable CLINICAL HISTORY: r/o pna COMPARISON STUDY: 03/09/2025 FINDINGS: Heart size and pulmonary vasculature are normal. No consolidation or pleural effusion seen. No pneumothorax. IMPRESSION: No pneumonia seen. ACT 112: Negative or not required by law. Electronically signed by: Max Arriaza M.D. 01/29/2025 12:15 PM
--- NOTE | 2025-01-29 13:57 | CT Scan Report ---
CT OF THE CHEST WITHOUT IV CONTRAST CLINICAL HISTORY: Cough. Shortness of breath. Evaluate for pneumonia. COMPARISON STUDY: Chest CTs June 23, 2015 and August 14, 2024. Chest radiograph performed earlier t sushil. CT DOSE: 439.23 mGy.cm TECHNIQUE: Axial images of the chest were obtained without IV contrast. Images were reviewed in the axial, sagittal, and coronal planes. IV contrast was not administered for this examination. Automat ed exposure control was utilized for the study. A dose lowering technique was utilized adhering to [facility] principles of ALARA. FINDINGS: No enlarged axillary, mediastinal or hilar lymph nodes are present. The heart is mildly en larged. A small pericardial effusion is unchanged. There is no pneumothorax or pleural effusion. Emph ysema is again noted. Multifocal bronchiectasis, most pronounced within the right lung is unchanged. Multifocal mucus plugging in scattered secretions within the airways are again noted. These are simil ar to prior CT. A small focus of tree-in-bud nodules within the right upper lobe have developed since CT of August 14, 2024. Otherwise, the appearance of the chest is unchanged. IMPRESSION: 1. Interval development of a small focus of tree-in-bud nodules within the right upper lobe suggestiv e of infectious bronchiolitis. 2. Otherwise, no significant change in appearance of the chest. Emphysema and multifocal bronchiectas is with mucus plugging and scattered airway secretions. ACT 112: Negative or not required by law. Electronically signed by: Lawson Chambers M.D. 01/29/2025 1:55 PM
[2025-01-29] MEDS: SIMVASTATIN 40 MG TAB PO SCH (20:11)
[2025-01-30 05:57] LABS: Hematocrit (blood only) 39.8 % (42.0-52.0); Hemoglobin 13.4 g/dl (14.0-18.0); Immature Granulocytes # (auto) 0.01 K/uL (0.01-0.20); Immature Granulocytes % (auto) 0.1 %; Mean Corpuscular Hemoglobin 30.0 pg (25.0-34.0); Mean Corpuscular Volume 89.0 fL (80.0-100.0); Platelet Count 320 K/uL (130-400); RDW Standard Deviation 45.5 fL (36.4-46.3); Red Blood Count 4.47 M/uL (4.70-6.10); White Blood Count 6.68 K/ul (4.8-10.8)
[2025-01-30 06:15] LABS: Alanine Aminotransferase 12.0 U/L (7-52); Albumin Globulin Ratio 1.3 (0.9-2); Alkaline Phosphatase 38.0 U/L (34-104); Anion Gap 4.0 (3-11); Bilirubin,Total 0.7 mg/dl (0.2-1.0); Blood Urea Nitrogen 14.0 mg/dl (6-23); Calcium 9.1 mg/dl (8.6-10.3); Carbon Dioxide 31.0 mmol/L (21-32); Chloride 103.0 mmol/L (98-107); Creatinine Clr Calc Pharmacy 63.0 ml/min; Globulin 2.9 gm/dl (2.5-4.0); Glucose 102.0 mg/dl (70-99(Fasting)); Magnesium 2.1 mg/dl (1.7-2.4); Potassium 3.8 mmol/L (3.5-5.1); Sodium 138.0 mmol/L (136-145); Total Protein 6.8 gm/dl (6.0-8.3)
[2025-01-30 06:33] LABS: INR 1.1 (0.9-1.1); Partial Thromboplastin Time 30 Seconds (21-31); Prothrombin Time 11.5 Seconds (9.0-12.0)
[2025-01-30 07:28] VITALS: PULSE 63; RESP 20; TEMP 97.9; O2SAT 97
--- NOTE | 2025-01-30 09:12 | Infectious Disease Progress Nt ---
Date of Service January 30, 2025 Assessment & Plan (1) Chronic sinusitis, unspecified: (2) Pseudomonas aeruginosa infection: Plan Problems: #Chronic sinusitis #History of bronchiectasis with Pseudomonas colonization Micro: 01/28 Sputum cx: moderate normal abby, not finalized. GS many GPCs 5/6 Sputum AFB cx: NG 5/6 Sputum cx: Pseudomonas aeruginosa (I amikacin, otherwise S), heavy normal abby 08/26 Sputum cx: Pseudomonas aeruginosa (I amikacin, cefepime. R cipro, levo. S aztreonam, ceftaz, dakota, tobra, pip/tazo) Abx: Levofloxacin 01/29 - present Augmentin 01/17 - 01/29 Cipro 01/27 - 01/29 74 yo M with history of bronchiectasis and Pseudomonas colonization, HTN, COPD, BPH, chronic sinusitis, anxiety who presented on 01/28 because he was trying to write a check that morning with his R arm, but was unable to do so for 15 minutes. Since that time, his symptoms resolved completely. Stroke work-up with CT head, CTA head/neck, MRI brain negative. He also reports that he has had a lot of sinus congestion lately, for which he had called ENT and was prescribed a 28 day course of Augmentin, which he started on 01/17. He has not noticed improvement with this. Around 01/27, he noted that his chronic cough was more productive, with thicker green sputum. He called his geophysical computer and was prescribed ciprofloxacin 500 mg PO BID for a 10 day course. Denies fevers. Denies rhinorrhea, but reports a lot of post nasal drip. Reports "brain fog", and feeling more lethargic and fatigued. States he also had brain fog two other times in the past year, and was evaluated in the ED in 02/2024 and 08/2024 and prescribed antibiotics, and his symptoms resolved. 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 He was not evaluated with an EKG at that time, but states that ciprofloxacin 750 mg PO BID caused his heart to feel "erratic", but he tolerates 500 mg PO BID ok. States he is willing to try levofloxacin again. CXR performed 01/29, with no consolidation seen. CTA neck from 01/28 with a few ill-defined GGOs in RUL suggestive of mild infectious process. CT head noted mild/moderate mucosal thickening and fluid within the maxillary antra, moderate mucosal thickening within ethmoid sinuses, mild mucosal thickening within frontal and sphenoid sinuses. CT chest performed 01/29 due to RUL GGOs incidentally seen on CT neck--this showed "interval development of a small focus of tree-in-bud nodules within the right upper lobe suggestive of infectious bronchiolitis." Discussion: Pt appears to have chronic sinusitis. In the absence of fevers, leukocytosis, increased O2 requirement, consolidation on chest imaging, seems less likely that pt has a pneumonia. Sputum cx growing only moderate normal abby thus far. CT chest does comment on a new small focus of tree-in-bud nodules in the RUL--uncertain significance as it relates to current symptoms. Do not think pt needs both fluoroquinolone and Augmentin, due to similar spectrums of coverage. Recommendations: - Continue levofloxacin 750 mg PO q24h through 02/03 to complete a 7 day course of fluoroquinolone - Can hold off on further Augmentin, given similar coverage to levofloxacin - Can follow-up with his geophysical computer - Follow-up final sputum culture (currently with moderate normal abby) Will sign off. Admission and Anticipated Discharge Date Admission Date: January 28, 2025 Subjective This patient recommendation is based on a telemedicine consult request which was completed asynchronously through chart review and information provided by the primary physician. The patient was not seen or examined today. The evaluation is consultative in nature and all patient care and treatment decisions can either be accepted or rejected by the patient's primary hospital-based treating physician using their own independent medical judgment for their patient. An e-consult was performed as the video cart is not functioning Time Spent Reviewing Chart: 11 - 20 minutes Remains afebrile without leukocytosis, on room air CT chest done Results & Data Vital Signs (Past 12 Hours) Vital Signs Temp Pulse Pulse Resp BP Pulse Ox O2 Del Method 01/30/25 07:26 36.6 C 63 20 165/82 H 97 Room Air 01/30/25 07:00 18 95 Room Air 01/30/25 03:09 37.0 C 52 L 18 149/72 H 96 Room Air 01/29/25 23:03 36.3 C L 56 L 18 155/78 H 96 Room Air 01/29/25 22:06 50 L Laboratory Results Short CBC 01/30/25 Range/Units 05:29 WBC 6.68 (4.8-10.8) K/ul Hgb 13.4 L (14.0-18.0) g/dl Hct 39.8 L (42.0-52.0) % Plt Count 320 (130-400) K/uL BMP 01/30/25 05:29 Sodium 138 Potassium 3.8 Chloride 103 Carbon Dioxide 31 BUN 14 Creatinine 1.03 Glucose 102 H Calcium 9.1 Liver Function 01/30/25 Range/Units 05:29 Total Bilirubin 0.7 (0.2-1.0) mg/dl AST 16 (13-39) U/L ALT 12 (7-52) U/L Alkaline Phosphatase 38 (34-104) U/L Albumin 3.9 (3.4-5.0) gm/dl Medications Administered Current Inpatient Medications Acetaminophen (Acetaminophen 325 Mg Tab) 650 mg PO Q4H PRN PRN Reason: Pain or Fever Stop: 02/27/25 15:53 Alprazolam (Alprazolam 0.25 Mg Tablet) 0.25 mg PO QPM PRN PRN Reason: anxiety Stop: 02/27/25 15:53 Last Admin: 01/29/25 21:38 Dose: 0.25 mg Amlodipine Besylate (Amlodipine Besylate 5 Mg Tab) 10 mg PO HS ROSALEE Stop: 02/27/25 20:59 Last Admin: 01/29/25 20:09 Dose: 10 mg Aspirin (Aspirin 81 Mg Ectab) 81 mg PO QPM ROSALEE Stop: 02/27/25 20:59 Last Admin: 01/29/25 20:10 Dose: 81 mg Citalopram Hydrobromide (Citalopram 20 Mg Tab) 30 mg PO QAM ROSALEE Stop: 02/28/25 08:59 Last Admin: 01/30/25 08:24 Dose: 30 mg Fluticasone Furoate (Fluticasone Furoate 100mcg 14 Puffs/Inhaler) 1 puffs INH DAILY ROSALEE Stop: 02/28/25 08:59 Last Admin: 01/30/25 08:26 Dose: 1 puffs Hydrochlorothiazide (Hydrochlorothiazide 25 Mg Tab) 12.5 mg PO QAM ROSALEE Stop: 02/28/25 08:59 Last Admin: 01/30/25 08:25 Dose: 12.5 mg Levalbuterol HCl (Levalbuterol Tartrate 15 Gm Hfa.Aer.Ad) 2 puffs INH BIDR PRN PRN Reason: shortness of breath or wheezin Stop: 02/27/25 15:53 Levofloxacin (Levofloxacin 750 Mg Tab) 750 mg PO HS ROSALEE; Protocol Stop: 02/03/25 20:59 Last Admin: 01/29/25 20:11 Dose: 750 mg Losartan Potassium (Losartan Potassium 50 Mg Tab) 50 mg PO BID [facility] Stop: 02/27/25 20:59 Last Admin: 01/30/25 08:25 Dose: 50 mg Miscellaneous Information (Pharmacist Discharge Med Rec Consult) 1 each N/A UD PRN PRN Reason: Consult Stop: 02/27/25 15:53 Montelukast Sodium (Montelukast Sodium 10 Mg Tablet) 10 mg PO QPM [facility] Stop: 02/27/25 20:59 Last Admin: 01/29/25 20:11 Dose: 10 mg Ondansetron HCl (Ondansetron Inj 2 Mg/Ml 2 Ml Vial) 4 mg IV Q6H PRN PRN Reason: NAUSEA/VOMITING Stop: 02/27/25 15:53 Simvastatin (Simvastatin 40 Mg Tab) 40 mg PO QPM [facility] Stop: 02/27/25 20:59 Last Admin: 01/29/25 20:11 Dose: 40 mg Sodium Chloride (Sodium Chlor 7% 4 Ml Neb) 4 ml INH BIDR [facility] Stop: 02/27/25 18:59 Last Admin: 01/30/25 07:00 Dose: 4 ml Tamsulosin HCl (Tamsulosin Hcl 0.4 Mg Cap) 0.4 mg PO QPM [facility] Stop: 02/27/25 20:59 Last Admin: 01/29/25 20:11 Dose: 0.4 mg Umeclidinium/Vilanterol (Umeclidinium/Vilanterol 62.5/25mcg 7 Puffs/Inhaler) 1 puffs INH DAILY [facility] Stop: 02/28/25 08:59 Last Admin: 01/30/25 08:26 Dose: 1 puffs (1) Chronic sinusitis, unspecified Sinusitis location: unspecified location Qualified Code(s): J32.9 - Chronic sinusitis, unspecified
[2025-01-30] MEDS ORDERED: STROKE PATIENT DISCHARGE STA (09:43)
--- NOTE | 2025-01-30 09:46 | Discharge Summary ---
Discharge Summary Date of Service January 30, 2025 Principal Dx & Hospital Course #1 = Principal Diagnosis (1) Stroke-like symptoms: -symptoms resolved -MRI negative -CT scan head without contrast negative -CTA head and neck negative -MRI brain is ordered and pending -Echocardiogram performed in August was negative will not be repeated (2) Pseudomonas aeruginosa infection: Had a prescription for Cipro 500 mg p.o. twice daily called in by pulmonology yesterday. He completed day 1 of 14 so far Abx changed to levaquin ID consulted as patient symptoms are persistent over [address] chest showing interval development of a small focus of tree-in-bud nodules within the right upper lobe suggestive of infectious bronchiolitis. Recommend continuing levaquin (3) Generalized anxiety disorder: Continue citalopram, and alprazolam as needed Plan The patient is a 74-year-old male with a past medical history including Pseudomonas lung infection, chronic bronchiectasis, generalized anxiety disorder BPH with urinary obstruction, hypertension, eustachian tube dysfunction, mixed conductive and sensorineural hearing loss, COPD, and history of tick bites. The patient reports that he was trying to write a check this morning with his right arm, and for 15 minutes he was not able to do it. Since that time the symptoms have resolved completely. He has no other symptoms, including involvement of right leg, speech, swallowing headaches dizziness etc. He had a similar episode about 8 years ago involving the right arm, but at that time also he looked in the mirror and saw that he had a facial droop as well. This time he did not have a facial droop. He continues to take his aspirin on a regular basis as directed, and all his other medications he has been taking regularly as well. He is presently on ciprofloxacin they began day 1 of 10 for a potential lung infection, and has been on Augmentin day 13 out of 28 for a sinus infection. He does not feel that his sinus infection has responded to the Augmentin. He reports that he has a sense of brain fog, which had happened once before with a sinus infection that responded to Augmentin, but the brain fog is not responding this time. Admission HPI Per Admitting Provider The patient is a 74-year-old male with a past medical history including Pseudomonas lung infection, chronic bronchiectasis, generalized anxiety disorder BPH with urinary obstruction, hypertension, eustachian tube dysfunction, mixed conductive and sensorineural hearing loss, COPD, and history of tick bites. The patient reports that he was trying to write a check this morning with his right arm, and for 15 minutes he was not able to do it. Since that time the symptoms have resolved completely. He has no other symptoms, including involvement of right leg, speech, swallowing headaches dizziness etc. He had a similar episode about 8 years ago involving the right arm, but at that time also he looked in the mirror and saw that he had a facial droop as well. This time he did not have a facial droop. He continues to take his aspirin on a regular basis as directed, and all his other medications he has been taking regularly as well. He is presently on ciprofloxacin they began day 1 of 10 for a potential lung infection, and has been on Augmentin day 13 out of 28 for a sinus infection. He does not feel that his sinus infection has responded to the Augmentin. Discharge Exam GENERAL APPEARANCE NAD, activity normal for age, well developed/ well nourished, no cyanosis, pallor, or diaphoresis. EYES lids/conjunctiva normal. EARS/NOSE/THROAT Mucous membranes moist, nares n ormal, lips/teeth normal uvula midline without oral pharyngeal erythema, exudate or swelling TMs normal bilaterally. No lymphangitis/lymphedema. HEAD/NECK normocephalic atraumatic, no facial trauma, neck is supple. RESPIRATORY respiratory effort normal, speaks in full sentences, no tripod position, no accessory muscle use. Lungs clear to auscultation without rhonchi, wheezes, rales CARDIAC Regular rate and rhythm, no edema. ABDOMINAL Soft, ND/NT. No evidence of fluid wave. No pulsatile masses on exam, rebound tenderness, Parker sign or pain over Mcburney's point. MUSCLES/EXTREMITIES No abnormal range of motion, no swelling. SKIN Warm, pink and dry. No rashes, dermatoses, petechiae or lesions. NEUROLOGICAL Speech is clear and appropriate. Normal level of consciousness. Gait and coordination are normal. 5/5 strength in all extremities. PSYCH Normal mood and affect. Judgement/competence is appropriate Discharge Plan Discharge Items Patient Disposition: Home - Self-Care Reason For Visit: STROKE LIKE SYMPTOMS Discharge Diagnosis: TIA, sinusitis Condition on Discharge: Fair Activity: Resume your previous activity Non-emergency contact: Primary Care Provider Call non-emergency contact if: you have any medication questions Follow-up/Referrals: Melvin Martin DO [Primary Care Provider] - Diet: Regular Addtl Attending Provider Instructions: Follow up with Pulmonary in 2 weeks Pending Studies at Discharge: No Stand-Alone Forms: My [facility], Smoking Cessation Medications and DC Order Prescriptions: New levofloxacin 750 mg Tablet 750 mg PO HS Qty: 7 0RF Continued simvastatin 10 mg tablet 10 mg PO QPM Qty: 90 3RF levalbuterol tartrate [Xopenex HFA] 45 mcg/actuation HFA aerosol inhaler 2 inh INH BID PRN (Reason: shortness of breath or wheezing) Qty: 15 3RF Patient Comments: takes prior to pulmonary toilet Rx Instructions: 2 inh INH every 4-6 hours PRN; Trelegy Ellipta 100-62.5-25 mcg blister with device 1 inh inhalation QAM Qty: 3 3RF doxycycline hyclate 100 mg capsule 200 mg PO ONCE PRN (Reason: Tick Bite) Qty: 30 0RF Patient Comments: not currently using Rx Instructions: take two tabs (200mg) for PRN tick bites montelukast 10 mg tablet 10 mg PO QPM Qty: 90 3RF sodium chloride 7 % solution for nebulization 4 ml inhalation BID Qty: 240 3RF (DME) compressor, for nebulizer Device See Rx Instructions .Route Qty: 1 0RF Rx Instructions: As directed (DME) nebulizer accessories Kit See Rx Instructions .Route Qty: 1 12RF Rx Instructions: As directed citalopram 10 mg tablet 10 mg PO QAM MDD 30mg Qty: 90 3RF Rx Instructions: take with 20mg tablet to equal 30mg daily citalopram 20 mg tablet 20 mg PO QAM MDD 30mg Qty: 90 3RF Rx Instructions: take with 10mg tab to equal 30mg daily aspirin [Adult Low Dose Aspirin] 81 mg tablet,delayed release (DR/EC) 81 mg PO QPM hydrochlorothiazide 12.5 mg tablet 12.5 mg PO QAM Qty: 90 2RF alprazolam [Xanax] 0.25 mg tablet 0.25 mg PO QPM PRN (Reason: anxiety) Qty: 90 1RF losartan 50 mg tablet 50 mg PO BID 90 Days Qty: 180 3RF potassium gluconate 595 mg (99 mg) Tablet 595 mg PO DAILY PRN (Reason: muscle aches) Hold Instructions: Home Medication placed on hold at Doctor's office tamsulosin [Flomax] 0.4 mg capsule 0.4 mg PO QPM amlodipine 5 mg tablet 10 mg PO HS Discontinued amoxicillin-pot clavulanate 875-125 mg tablet 1 tab PO Q12H 28 Days Qty: 56 0RF Rx Instructions: Take all of the antibiotic as directed even if you are feeling better prior to finishing the course. ciprofloxacin HCl 500 mg tablet 500 mg PO BID 10 Days Qty: 20 0RF Patient Comments: 01/28- took one dose last night and problems started Discharge Orders: Discharge Order (Routine); Ordered 01/30/25 Ordered By: Michael Morris Admission Data Admit Date/Time: 01/28/25 14:55 Attending Provider: Michael Morris Admit Provider: Vijay Ragland Primary Care Provider: Melvin Martin Other Providers: Vijay Ragland; Larissa Pacheco; Tennille Nazario; Marleny Khan; Joselyn Kennedy; Mery Mena; Ivette Fowler Hospital Stay Data Consultations 01/28/25 14:31 ED Decision to Admit Stat 01/29/25 09:51 Consult Infectious Diseases Routine Diagnostic Imagining Performed 01/28/25 12:09 CT angio head w con Stat CT angio neck with con Stat CT head/brain wo con Stat 01/28/25 15:54 MR brain wo con Routine 01/29/25 12:34 CT chest diagnostic wo con Urgent Pending Results Patient Have Any Pending Studies at Discharge: No Discharge Instructions Given to Patient (Per Discharging Provider) Follow up with Pulmonary in 2 weeks Total Time Total Time Spent Total Time Spent (In Minutes): 50 Coding Level of Care Code 12558 INP/OBS DISCH >30 MIN Diagnoses Stroke-like symptoms R29.90 Pseudomonas aeruginosa infection A49.8 Generalized anxiety disorder F41.1
[2025-01-30 10:12] VITALS: BP 193/88
--- NOTE | 2025-01-30 11:09 | Pharmacy Report ---
- Date of Service January 30, 2025 - Pharmacy CVA/TIA Medication Review Medications to Prevent Stroke handout has been added to the patients discharge packet. Antiplatelet(s) * Aspirin Cholesterol * High intensity statin deferred due to age >[address] Morris DVT Prophylaxis * SCD knee Therapeutic Anticoagulation * No history of Afib/Aflutter noted Type 2 Diabetes * Patient does not have T2DM
--- NOTE | 2025-02-01 09:47 | Electrocardiogram Report ---
Test Reason : Blood Pressure : */* mmHG Vent. Rate : 58 BPM Atrial Rate : 58 BPM P-R Int : 208 ms QRS Dur : 90 ms QT Int : 446 ms P-R-T Axes : 73 97 62 degrees QTcB Int : 437 ms Sinus bradycardia Rightward axis Borderline ECG When compared with ECG of 14-Aug-2024 11:44, No significant change Confirmed by Chris Aldridge ([id number]) on 02/01/2025 9:46:53 AM Referred By: REFERRED SELF Confirmed By: Chris Aldridge
== END 2025-01-30 11:20 | disposition home or self-care (01) ==
LOC: 2E 11:50 → ED 11:50 → SUATTDRO 14:55 → 2E 15:30